=== PATIENT | male | born 1970 | race Caucasian/White ===

== ENCOUNTER 2018-04-12 22:45 | Inpatient (IN) ==
[2018-04-12] MEDS ORDERED: ASPIRIN CHEW 324 MG PO STA (22:55)
[2018-04-12] MEDS ORDERED: HEPARIN SOD (PORCINE) 1000 UNIT/ML 10 ML VIAL IV ONE (22:57)
[2018-04-12] MEDS ORDERED: TICAGRELOR 90 MG TAB PO ONE (22:57)
[2018-04-12] MEDS ORDERED: ASPIRIN CHEW 324 MG ONE (22:57)
[2018-04-12] MEDS ORDERED: SODIUM CHLORIDE 0.9% 1000ML 1,000 ML IV SCH (23:00)
[2018-04-12] MEDS: NITROGLYCERIN SL 0.4 MG/TAB TAB SL PRN ×2 (23:01→23:12)
[2018-04-12 23:08] LABS: Basophils # (auto) 0.02 K/uL (0-0.2); Basophils % (auto) 0.1 %; Eosinophils # (auto) 0.03 K/uL (0-0.5); Eosinophils % (auto) 0.2 %; Hematocrit (blood only) 42.2 % (42-52); Hemoglobin 15.4 g/dL (14.0-18.0); Immature Granulocytes # (auto) 0.08 K/uL (0.00-0.02); Immature Granulocytes % (auto) 0.4 %; Lymphocytes # (auto) 1.58 K/uL (1.2-3.4); Lymphocytes % (auto) 8.3 %; Mean Corpuscular Hgb Conc 36.5 g/dL (32-36); Mean Corpuscular Volume 89.8 fL (80-100); Mean Platelet Volume 8.4 fL (7.4-10.4); Monocytes # (auto) 1.07 K/uL (0.11-0.59); Monocytes % (auto) 5.6 %; Neutrophils # (auto) 16.29 K/uL (1.4-6.5); Neutrophils % (auto) 85.4 %; Platelet Count 374 K/uL (130-400); RDW Coefficient of Variation 12.6 % (11.5-14.5); RDW Standard Deviation 41.4 fL (36.4-46.3); White Blood Count 19.07 K/uL (4.8-10.8)
[2018-04-12] MEDS ORDERED: MoRPHine SULFATE 4 MG/ML 1 ML CARP\\VIAL ONE (23:12)
--- NOTE | 2018-04-12 23:18 | Pre Anesthesia Assessment ---
Date of Service April 12, 2018 Pre Sedation Assessment Vital Signs Temp Pulse Resp BP Pulse Ox 04/12/18 22:48 36.4 C L 66 24 136/88 99 Cardiovascular RRR, no murmur, no edema Respiratory normal respiratory effort, lungs clear to auscultation Pre-Sedation Airway Assessment Smoking Status: Never smoker Hx Sleep Apnea: No Hx Difficult Intubation: No Short, Thick Neck: No Thyromental Distance: > or= 3.5 Finger Breadths Mallampati Class: III Procedure Planning Contraindications for Sedation: none Current Medications Reviewed: Yes Notes The planned sedation has been discussed with the patient. Informed Consent was obtained. I have identified the patient, determined the appropriateness of sedation and have assessed the patient immediately prior to the procedure. All medicine(s) and interventions are by my order.
[2018-04-12 23:21] LABS: iSTAT Creatinine 1.1 mg/dl (0.6-1.3); iSTAT Hemoglobin 14.6 g/dl (14.0-18.0); iSTAT Ionized Calcium 1.07 mmol/l (1.12-1.32); iSTAT Potassium 3.5 mEq/L (3.3-5.0)
[2018-04-12] MEDS ORDERED: MIDAZOLAM HCL 1 MG/ML 2ML VIAL ONE (23:24)
[2018-04-12] MEDS ORDERED: fentaNYL citrate 100 MCG/2 ML VIAL ONE (23:24)
[2018-04-12] MEDS ORDERED: HEPARIN (PORCINE) 1000 UNIT/ML 10 ML (CATH LAB USE ONLY) ONE (23:25)
[2018-04-12] MEDS ORDERED: NiCARDipine HCL INJ 2.5 MG/ML 10 ML AMP ONE (23:25)
[2018-04-12] MEDS ORDERED: NITROGLYCERIN/D5W 100MCG/ML 20ML SYR ONE (23:25)
--- NOTE | 2018-04-12 23:26 | Cardiac Catheterization ---
Cardiac Cath Procedure Full Procedure Date April 12, 2018 Pre-Procedure Diagnosis Pre-Procedure Diagnosis: STEMI AUC Score AUC Score: 9 Post-Procedure Diagnosis Post-Procedure Diagnosis: Severe CAD, Successful PCI and Elevated Intracardiac Pressures Procedure(s) Performed Procedure(s) Performed: Coronary Angiography, Left Heart Cath, PTCA, Drug Eluting Stent and IVUS Furnace Charger Pineda Kaur MD Supervisor Grounds(s) Mookie Estimated Blood Loss Estimated Blood Loss: 20 Medication(s) Medication(s): Adenosine, Fentanyl, Heparin, Lidocaine 1%, Nicardipine, Nitroglycerin and Versed Medication(s): Ticagrelor Summary of Findings Indication: STEMI/Heart Alert Access: 6Fr right radial artery Catheters: EBU 3.5 guide Findings: LM - Luminal irregularities LAD - 100% acute proximal occlusion Circumflex - Moderate caliber vessel with 40-50% mid segment into proximal OM2 disease Ramus - Moderate caliber vessel without significant disease RCA - Large caliber, dominant vessel. Mid segment luminal irregularities. R- PDA large caliber without significant disease. LVEDP - 25 -- PCI -- Antithrombotic therapy: Heparin, Ticagrelor Procedure: LM cannulated with EBU 3.5 guide Shot Fireman 50 wire passed across lesion into distal vessel Proximal LAD lesion predilated with 2.0 compliant balloon Dilated lesion stented with 3.0 x 26 Lino GUILLAUME Due to heavy thrombus burden and slow distal flow started on integrilin IVUS used to asses extent of disease, calcification and for vessel sizing. Shot Fireman 50 wire placed into moderate caliber 2nd diagonal Stent post-dilated with 4.0 noncompliant balloon to high atmospheres. Noted to have some haziness at distal end of stent. IVUS showed moderate to severe plaque distal to stent. 2nd GUILLAUME placed to mid LAD (2.75 x 12 Norton) and overlapped distal end of initial stent Ostium of 2nd diagonal/stent struts dilated with 1.5 and 2.0 balloons. IC vasodilators administered for spasm Post procedure FLOR 3 flow, stent well expanded with minimal residual stenosis and no apparent cardiac complications. Arterial Closure: TR Band Summary: 1. Anterior STEMI/Occluded LAD 2. Moderate single vessel non-culprit coronary artery disease - 40-50% mid circumflex 3. Elevated intracardiac filling pressure 4. Successful PCI of proximal to mid LAD with 2 overlapping drug-eluting stents (3.0 x 26, 2.75 x 12; post-dilated with 4.0 NC). - POBA of ostium of 2nd diagonal with 2.0 balloon. Recommendations: Admit to ICU for continued monitoring Continue integrilin for 8 hours. 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 Continue dual-antiplatelet therapy for at least 1 year. 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 Cardiac Status Clinical evaluation leading to the procedure CAD Presenation: STEMI Anginal Classification: CCS IV Heart Failure: No Cardiogenic Shock within 24 Hours: No Cardiac Arrest within 24 Hours: No Imaging Studies Past 6 Months: No Stress Studies Past 6 Months: No Diagnostic Physicians Name: Pineda Kaur MD Status: Emergency Closure Device Percutaneous Entry Location: Radial Closure Device: Radial Band Recommendations: PCI without planned CABG PCI Indication: Immediate PCI for STEMI First Noted: First EKG Lesion Segment Name: proximal LAD Culprit Artery: Yes Stenosis Prior to Rx (%): 100 Chronic Total Occlusion: No IVUS: Yes FFR: No Pre-Procedure FLOR Flow: 0 Previously Treated Lesion: No Lesion Complexity: High/C Lesion Length (mm): 25 Thrombus Present: Yes Bifurcation Lesion: Yes Guidewire Across Lesion: Stenosis Post-Procedure (%): 0 Post-Procedure FLOR Flow : 3 Devices(s) Deployed: Yes Yes Intraprocedure Events Significant Disection: No Perforation: No
--- NOTE | 2018-04-12 23:39 | Emergency Department Note ---
Entered by Michael Casas acting as a scribe for Hunter Wolf MD History of Present Illness General Chief complaint: Chest Pain Stated complaint: CHEST PAIN Time Seen by Provider: 04/12/18 22:55 Source: patient and family () History of Present Illness Provider complaint: Chest Pain Onset (ago): hour(s) 3 Location: chest Pain Consistency: + constant Maximum Pain Intensity: 7 Current Pain Intensity: 10 Quality: + other (pressure) Associated symptoms: + diaphoresis and + other (tiredness); no nausea/vomiting The patient is a 47 year old male who presents to the Emergency Room with complaints of chest pain beginning approximately 3 hours ago. The patient, who was brought in via car by his , states he was working out when the pain began and rates it as a 10/10. The patient localizes the pain to the center left of his chest and describes his pain as a pressure. The pain is associated with diaphoresis. The patient also states that he feels tired. The patient denies nausea/vomiting. The patient denies a history of cardiac issues and adds he has no medical problems. The patient also denies taking any daily medications. The patient notes he has no family history of heart problems and adds he is a nonsmoker. Home Medications Home Medications Medication Instructions Recorded Confirmed Type No Known Home Medications 04/12/18 04/12/18 History Allergies Allergy/AdvReac Type Severity Reaction Status Date / Time No Known Allergies Allergy Verified 04/12/18 23:37 Past Med/Surg History Medical History No known health problems No pertinent past medical history Surgical History No history of previous surgery Social History Current Living Situation: Family Feels Safe at Home: Yes Safety Concerns: Feels Safe At This Time Smoking Status: Never smoker Do You Dip or Chew Tobacco: No Second Hand Exposure: No Tobacco Cessation Education Requested by Patient: No Hx Alcohol Use: No Hx Substance Use: No Beliefs That Will Affect Care: None Preferred Language: Mongolian Communication Ability: Effective Lead Electrical Controls Engineer Required: No Review of Systems See HPI for pertinent positives & negatives. and A total of 10 systems reviewed and were otherwise negative Physical Exam Vital Signs Vital Signs - 24 hr 04/12/18 22:48 04/12/18 23:18 04/13/18 01:23 Temperature 36.4 C L 36.6 C Temperature Source Oral Oral Sepsis Recent Fever Within 48 Hours No Sepsis Action Taken by Nursing No Action Required Pulse Rate 66 61 Pulse Rate [Bilateral Apical] 60 67 Pulse Rhythm Regular Pulse Rhythm [Bilateral Apical] Regular Regular Pulse Strength [Bilateral Apical] Normal Normal Respiratory Rate 24 16 18 Respiratory Effort / Characteristics Non-Labored Spontaneous Non-Labored Spontaneous Respiratory Depth Normal Normal Respiratory Pattern Regular Regular Blood Pressure 136/88 Blood Pressure [Right Arm] 113/64 117/55 L Blood Pressure Mean 104 Blood Pressure Mean [Right Arm] 80 75 Blood Pressure Position [Right Arm] Lying Pulse Oximetry 99 94 93 Oxygen Delivery Method Room Air Nasal Cannula Nasal Cannula Oxygen Flow Rate 4 2 04/13/18 01:36 04/13/18 02:23 04/13/18 02:53 Temperature 36.6 C Temperature Source Oral Sepsis Recent Fever Within 48 Hours Sepsis Action Taken by Nursing Pulse Rate Pulse Rate [Bilateral Apical] 81 75 66 Pulse Rhythm Pulse Rhythm [Bilateral Apical] Regular Regular Pulse Strength [Bilateral Apical] Normal Normal Normal Respiratory Rate 18 18 20 Respiratory Effort / Characteristics Non-Labored Non-Labored Spontaneous Non-Labored Spontaneous Respiratory Depth Normal Normal Normal Respiratory Pattern Regular Regular Blood Pressure Blood Pressure [Right Arm] 117/55 L 103/68 97/65 L Blood Pressure Mean Blood Pressure Mean [Right Arm] 75 79 75 Blood Pressure Position [Right Arm] Sitting Pulse Oximetry 93 95 Oxygen Delivery Method Room Air Nasal Cannula Nasal Cannula Oxygen Flow Rate 4 4 04/13/18 03:00 04/13/18 03:53 Temperature 36.9 C Temperature Source Oral Sepsis Recent Fever Within 48 Hours Sepsis Action Taken by Nursing Pulse Rate Pulse Rate [Bilateral Apical] 85 66 Pulse Rhythm Pulse Rhythm [Bilateral Apical] Regular Regular Pulse Strength [Bilateral Apical] Normal Normal Respiratory Rate 18 18 Respiratory Effort / Characteristics Non-Labored Spontaneous Non-Labored Spontaneous Respiratory Depth Normal Normal Respiratory Pattern Regular Regular Blood Pressure Blood Pressure [Right Arm] 107/72 95/67 L Blood Pressure Mean Blood Pressure Mean [Right Arm] 83 76 Blood Pressure Position [Right Arm] Lying Pulse Oximetry 95 95 Oxygen Delivery Method Nasal Cannula Nasal Cannula Oxygen Flow Rate 4 4 GENERAL: Awake, alert, ill-appearing HENT: Normocephalic, atraumatic. Oropharynx with dry mucous membranes and otherwise unremarkable. EYES: Normal conjunctiva. Sclera non-icteric. NECK: Supple. No nuchal rigidity. FROM. No JVD. RESPIRATORY: Clear to auscultation. CARDIAC: Regular rate, normal rhythm. Extremities warm and well perfused. Pulses equal. ABDOMEN: Soft, non-distended. No tenderness to palpation. No rebound or guarding. No masses. RECTAL: Deferred. MUSCULOSKELETAL: Chest examination reveals no tenderness. There is no CVA tenderness to palpation. No joint edema. LOWER EXTREMITIES: Calves are equal size bilaterally and non-tender. No edema. No discoloration. NEURO: Normal sensorium. No sensory or motor deficits noted. SKIN: No rash or jaundice noted. Pale and diaphoretic Course 2250: Past medical records reviewed. The patient was evaluated in room B01, and a complete history and physical examination were performed. 2344: I reviewed the patient's case with Dr. De Leon. He will evaluate the patient for further management. Consultations Consultation #1: [id number]: I reviewed the patient's case with Dr. Gurvinder Velazco. He will evaluate the patient for further management. Time: 23:44 Administered Medications Eptifibatide (Integrilin) 75 mg in 100 mls @ 12.64 mls/hr IV .Q7H55M [facility]; Protocol Stop: 04/13/18 09:45 Last Admin: 04/13/18 02:45 Dose: 2 mcg/kg/min, 12.6 mls/hr Morphine Sulfate (Morphine Sulfate) 2 mg IV Q2H PRN PRN Reason: moderate to severe pain Stop: 04/27/18 01:09 Last Admin: 04/13/18 02:02 Dose: 4 mg Ondansetron HCl (Zofran) 4 mg IV Q6H PRN PRN Reason: Nausea And Vomiting Stop: 05/13/18 01:07 Last Admin: 04/13/18 01:43 Dose: 4 mg Discontinued Medications Adenosine (Adenosine) Confirm Administered Dose 6 mg IV .STK-MED ONE Stop: 04/13/18 00:24 Last Admin: 04/13/18 00:54 Dose: 6 mg Aspirin (Aspirin) 324 mg PO NOW STA Stop: 04/12/18 22:56 Last Admin: 04/12/18 23:01 Dose: 324 mg Aspirin (Aspirin) Confirm Administered Dose 324 mg .ROUTE .STK-MED ONE Stop: 04/12/18 22:58 Last Admin: 04/12/18 23:02 Dose: Not Given Eptifibatide (Integrilin (Automatic Spinning Lathe Operator Use Only)) Confirm Administered Dose 40 mg .ROUTE .STK-MED ONE Stop: 04/12/18 23:54 Last Admin: 04/13/18 00:53 Dose: 29.2 ml Eptifibatide (Integrilin (Automatic Spinning Lathe Operator Use Only)) Confirm Administered Dose 75 mg .ROUTE .STK-MED ONE Stop: 04/12/18 23:56 Last Admin: 04/13/18 00:54 Dose: Not Given Fentanyl Citrate (Fentanyl Citrate) Confirm Administered Dose 100 mcg .ROUTE .STK-MED ONE Stop: 04/12/18 23:25 Last Admin: 04/13/18 00:48 Dose: 25 mcg Fentanyl Citrate (Fentanyl Citrate) Confirm Administered Dose 100 mcg .ROUTE .STK-MED ONE Stop: 04/13/18 00:23 Last Admin: 04/13/18 00:49 Dose: 100 mcg Heparin Sodium (Porcine) (Heparin Iv Bolus) 5,000 units IV ONE ONE Stop: 04/12/18 22:58 Last Admin: 04/12/18 23:11 Dose: 5,000 units Heparin Sodium (Porcine) (Heparin Iv Bolus (Automatic Spinning Lathe Operator Use Only)) Confirm Administered Dose 10,000 units .ROUTE .STK-MED ONE Stop: 04/12/18 23:26 Last Admin: 04/13/18 00:52 Dose: 9,000 units Heparin Sodium/Sodium Chloride (Heparin Sod/Nss 2 Units/Ml) Confirm Administered Dose 1,000 units IV .STK-MED ONE Stop: 04/12/18 23:26 Last Admin: 04/13/18 00:52 Dose: 1,000 units Sodium Chloride (Nss 1000ml) 1,000 mls @ 125 mls/hr IV .Q8H ROSELINE Stop: 05/12/18 22:59 Last Infusion: 04/13/18 02:15 Dose: Admin: 04/12/18 23:01 Dose: 125 mls/hr Furosemide 10 mg/ Syringe 1 mls @ 4 mls/min IV TODAY@0245 ONE Stop: 04/13/18 02:46 Last Admin: 04/13/18 02:45 Dose: 4 mls/min Midazolam HCl (Versed) Confirm Administered Dose 2 mg .ROUTE .STK-MED ONE Stop: 04/12/18 23:25 Last Admin: 02/08/19 00:51 Dose: 2 mg Morphine Sulfate (Morphine Sulfate) Confirm Administered Dose 4 mg .ROUTE .STK- MED ONE Stop: 04/12/18 23:13 Last Admin: 04/12/18 23:13 Dose: 4 mg Nicardipine HCl (Cardene) Confirm Administered Dose 25 mg .ROUTE .STK-MED ONE Stop: 04/12/18 23:26 Last Admin: 04/13/18 00:52 Dose: 25 mg Nitroglycerin (Nitrostat) 0.4 mg SL Q5M PRN PRN Reason: Chest Pain Last Admin: 04/12/18 23:12 Dose: 0.4 mg Admin: 04/12/18 23:01 Dose: 0.4 mg Nitroglycerin/Dextrose (Nitroglycerin/D5w 100 Mcg/Ml 20ml Syringe) Confirm Administered Dose 2,000 mcg .ROUTE .STK-MED ONE Stop: 04/12/18 23:26 Last Admin: 04/13/18 00:53 Dose: 2,000 mcg Norepinephrine Bitartrate (Levophed (Automatic Spinning Lathe Operator Use Only)) Confirm Administered Dose 4 mg .ROUTE .STK-MED ONE Stop: 04/12/18 23:50 Last Admin: 04/13/18 00:51 Dose: Not Given Ticagrelor (Brilinta) 180 mg PO ONE ONE Stop: 04/12/18 22:58 Last Admin: 04/12/18 23:10 Dose: 180 mg Medical Decision Making Differential Diagnosis Differential diagnosis: Etiologies such as shingles, musculoskeletal pain, pericarditis, myocarditis, cardiac ischemia, pericardial tamponade, pneumonia, pneumothorax, pleural effusion, hemothorax, pleurisy, aortic pathology, pulmonary embolism, intra- abdominal process, as well as others were considered. Medical Records Attestation: I reviewed the patient's medical records. Home Medications Current Medication List: was personally reviewed by me Laboratory Data Attestation: I reviewed the patient's lab results. Result diagrams: 04/13/18 04:05 04/13/18 04:05 Lab Results 04/12/18 04/12/18 04/12/18 Range/Units 22:59 22:59 22:59 WBC 19.07 H (4.8-10.8) K/uL RBC 4.70 (4.7-6.1) M/uL Hgb 15.4 (14.0-18.0) g/dL POC Hgb (14.0-18.0) g/dl Hct 42.2 (42-52) % POC Hct (42-52) % MCV 89.8 (80-100) fL MCH 32.8 (25-34) pg MCHC 36.5 H (32-36) g/dL RDW Std Deviation 41.4 (36.4-46.3) fL RDW Coeff of Val 12.6 (11.5-14.5) % Plt Count 374 (130-400) K/uL MPV 8.4 (7.4-10.4) fL Immature Gran % (Auto) 0.4 % Neut % (Auto) 85.4 % Lymph % (Auto) 8.3 % Gulf % (Auto) 5.6 % Eos % (Auto) 0.2 % Baso % (Auto) 0.1 % Immature Gran # (Auto) 0.08 H (0.00-0.02) K/uL Neut # (Auto) 16.29 H (1.4-6.5) K/uL Lymph # (Auto) 1.58 (1.2-3.4) K/uL Gulf # (Auto) 1.07 H (0.11-0.59) K/uL Eos # (Auto) 0.03 (0-0.5) K/uL Baso # (Auto) 0.02 (0-0.2) K/uL RBC Morphology PT Cancelled INR Cancelled APTT Cancelled PTT Ratio Cancelled POC Sodium (135-144) mEq/L Sodium 138 (136-145) mmol/L POC Potassium (3.3-5.0) mEq/L Potassium 3.7 (3.5-5.1) mmol/L POC Chloride (101-112) mEq/L Chloride 104 (98-107) mmol/L Carbon Dioxide 24 (21-32) mmol/L POC Total CO2 (24-31) mEq/l Anion Gap 10.0 (3-11) POC Anion Gap (16-25) mmol/L POC BUN (7-18) mg/dl BUN 16 (7-18) mg/dl Creatinine 1.34 (0.6-1.4) mg/dl POC Creatinine (0.6-1.3) mg/dl Est Cr Clr Drug Dosing 66.7 ml/min Est GFR ( Amer) 71.6 Est GFR (Non-Af Amer) 61.8 BUN/Creatinine Ratio 11.6 (10-20) Glucose 124 H (70-99) mg/dl POC Glucose (other) (70-99) mg/dl Calcium 8.7 (8.5-10.1) mg/dl POC Ioniz Calcium Thu (1.12-1.32) mmol/l Magnesium 2.1 (1.8-2.4) mg/dl Total Bilirubin 0.5 (0.2-1) mg/dl AST 33 (15-37) U/L ALT 31 (12-78) U/L Alkaline Phosphatase 112 (45-117) U/L Total Creatine Kinase 320 H (39-308) U/L CK-MB (CK-2) 10.0 H (0.5-3.6) ng/ml CK/CKMB % Calc 3.1 H (0-3.0) POC Troponin I (0-0.045) ng/ml Troponin I 1.310 H* (0-0.045) ng/ml Total Protein 7.7 (6.4-8.2) gm/dl Albumin 4.2 (3.4-5.0) gm/dl Globulin 3.5 (2.5-4.0) gm/dl Albumin/Globulin Ratio 1.2 (0.9-2) Triglycerides (0-150) mg/dl Cholesterol (0-200) mg/dl LDL Cholesterol, Calc mg/dl VLDL Cholesterol, Calc mg/dl HDL Cholesterol mg/dl Cholesterol/HDL Ratio Lipase 101 (73-393) U/L TSH 1.170 (0.300-4.500) uIu/ml Specimen Hemolysis Nasal Screen MRSA (PCR) (Negative) Blood Type Antibody Screen 04/12/18 04/12/18 04/12/18 Range/Units 22:59 23:04 23:07 WBC (4.8-10.8) K/uL RBC (4.7-6.1) M/uL Hgb (14.0-18.0) g/dL POC Hgb 14.6 (14.0-18.0) g/dl Hct (42-52) % POC Hct 43 (42-52) % MCV (80-100) fL MCH (25-34) pg MCHC (32-36) g/dL RDW Std Deviation (36.4-46.3) fL RDW Coeff of Val (11.5-14.5) % Plt Count (130-400) K/uL MPV (7.4-10.4) fL Immature Gran % (Auto) % Neut % (Auto) % Lymph % (Auto) % Gulf % (Auto) % Eos % (Auto) % Baso % (Auto) % Immature Gran # (Auto) (0.00-0.02) K/uL Neut # (Auto) (1.4-6.5) K/uL Lymph # (Auto) (1.2-3.4) K/uL Gulf # (Auto) (0.11-0.59) K/uL Eos # (Auto) (0-0.5) K/uL Baso # (Auto) (0-0.2) K/uL RBC Morphology PT INR APTT PTT Ratio POC Sodium 140 (135-144) mEq/L Sodium (136-145) mmol/L POC Potassium 3.5 (3.3-5.0) mEq/L Potassium (3.5-5.1) mmol/L POC Chloride 101 (101-112) mEq/L Chloride (98-107) mmol/L Carbon Dioxide (21-32) mmol/L POC Total CO2 26 (24-31) mEq/l Anion Gap (3-11) POC Anion Gap 17.0 (16-25) mmol/L POC BUN 15 (7-18) mg/dl BUN (7-18) mg/dl Creatinine (0.6-1.4) mg/dl POC Creatinine 1.1 (0.6-1.3) mg/dl Est Cr Clr Drug Dosing ml/min Est GFR ( Amer) Est GFR (Non-Af Amer) BUN/Creatinine Ratio (10-20) Glucose (70-99) mg/dl POC Glucose (other) 129 H (70-99) mg/dl Calcium (8.5-10.1) mg/dl POC Ioniz Calcium Thu 1.07 L (1.12-1.32) mmol/l Magnesium (1.8-2.4) mg/dl Total Bilirubin (0.2-1) mg/dl AST (15-37) U/L ALT (12-78) U/L Alkaline Phosphatase (45-117) U/L Total Creatine Kinase (39-308) U/L CK-MB (CK-2) (0.5-3.6) ng/ml CK/CKMB % Calc (0-3.0) POC Troponin I 0.99 H (0-0.045) ng/ml Troponin I (0-0.045) ng/ml Total Protein (6.4-8.2) gm/dl Albumin (3.4-5.0) gm/dl Globulin (2.5-4.0) gm/dl Albumin/Globulin Ratio (0.9-2) Triglycerides (0-150) mg/dl Cholesterol (0-200) mg/dl LDL Cholesterol, Calc mg/dl VLDL Cholesterol, Calc mg/dl HDL Cholesterol mg/dl Cholesterol/HDL Ratio Lipase (73-393) U/L TSH (0.300-4.500) uIu/ml Specimen Hemolysis Nasal Screen MRSA (PCR) (Negative) Blood Type O Positive Antibody Screen NEGATIVE 04/13/18 04/13/18 04/13/18 Range/Units 04:05 04:05 Unknown WBC 16.27 H (4.8-10.8) K/uL RBC 4.52 L (4.7-6.1) M/uL Hgb 14.2 (14.0-18.0) g/dL POC Hgb (14.0-18.0) g/dl Hct 40.5 L (42-52) % POC Hct (42-52) % MCV 89.6 (80-100) fL MCH 31.4 (25-34) pg MCHC 35.1 (32-36) g/dL RDW Std Deviation 41.7 (36.4-46.3) fL RDW Coeff of Val 12.9 (11.5-14.5) % Plt Count 356 (130-400) K/uL MPV 8.7 (7.4-10.4) fL Immature Gran % (Auto) 0.4 % Neut % (Auto) 88.7 % Lymph % (Auto) 8.2 % Gulf % (Auto) 2.6 % Eos % (Auto) 0.1 % Baso % (Auto) 0.0 % Immature Gran # (Auto) 0.07 H (0.00-0.02) K/uL Neut # (Auto) 14.42 H (1.4-6.5) K/uL Lymph # (Auto) 1.34 (1.2-3.4) K/uL Gulf # (Auto) 0.43 (0.11-0.59) K/uL Eos # (Auto) 0.01 (0-0.5) K/uL Baso # (Auto) 0.00 (0-0.2) K/uL RBC Morphology Unremarkable PT INR APTT PTT Ratio POC Sodium (135-144) mEq/L Sodium 137 (136-145) mmol/L POC Potassium (3.3-5.0) mEq/L Potassium 4.1 (3.5-5.1) mmol/L POC Chloride (101-112) mEq/L Chloride 107 (98-107) mmol/L Carbon Dioxide 27 (21-32) mmol/L POC Total CO2 (24-31) mEq/l Anion Gap 3.0 (3-11) POC Anion Gap (16-25) mmol/L POC BUN (7-18) mg/dl BUN 15 (7-18) mg/dl Creatinine 1.07 (0.6-1.4) mg/dl POC Creatinine (0.6-1.3) mg/dl Est Cr Clr Drug Dosing 78.1 ml/min Est GFR ( Amer) 94.0 Est GFR (Non-Af Amer) 81.1 BUN/Creatinine Ratio 14.2 (10-20) Glucose 128 H (70-99) mg/dl POC Glucose (other) (70-99) mg/dl Calcium 7.9 L (8.5-10.1) mg/dl POC Ioniz Calcium Thu (1.12-1.32) mmol/l Magnesium (1.8-2.4) mg/dl Total Bilirubin (0.2-1) mg/dl AST (15-37) U/L ALT (12-78) U/L Alkaline Phosphatase (45-117) U/L Total Creatine Kinase (39-308) U/L CK-MB (CK-2) (0.5-3.6) ng/ml CK/CKMB % Calc (0-3.0) POC Troponin I (0-0.045) ng/ml Troponin I (0-0.045) ng/ml Total Protein (6.4-8.2) gm/dl Albumin (3.4-5.0) gm/dl Globulin (2.5-4.0) gm/dl Albumin/Globulin Ratio (0.9-2) Triglycerides 80 (0-150) mg/dl Cholesterol 198 (0-200) mg/dl LDL Cholesterol, Calc 143 mg/dl VLDL Cholesterol, Calc 16 mg/dl HDL Cholesterol 39 mg/dl Cholesterol/HDL Ratio 5 Lipase (73-393) U/L TSH (0.300-4.500) uIu/ml Specimen Hemolysis Nasal Screen MRSA (PCR) Negative (Negative) Blood Type Antibody Screen Imaging Data Attestation: I personally reviewed and interpreted this imaging study as follows : My Impression: CXR: Normal mediastinum. Possible mild vascular prominence. No overt pulmonary edema or focal infiltrates. ECG Data Attestation: I personally reviewed and interpreted this ECG as follows: Indication: chest pain Rate (beats per minute): 67 Rhythm: normal sinus Findings: + ST depression (reciprocal inferior) and + ST elevation (anterior lateral) Blood Pressure Blood Pressure Findings: Normal blood pressure MDM Narrative The patient is a 47-year-old gentleman who denies prior medical history who presents emergency department with sudden onset substernal chest pressure at 7 PM today when he was exercising per hpi. On arrival the patient is ill- appearing, pale and diaphoretic with vital signs otherwise stable. EKG demonstrates anterior lateral ST elevation [place], reciprocal inferior ST depressions. Heart alert activated upon arrival. Patient was given aspirin and nitroglycerin with improvement in pain. Chest x-ray without mediastinal enlargement. Dr. Kaur, interventional cardiology, at the bedside and discussed plan for catheterization with the patient and his . Patient was given ticagrelor and heparin bolus per Dr. Kaur. Case additionally d/w Dr. Carnes, [facility] hospitalist, who will admit the patient following pharmacy laboratory technician. WBC 19. H/H and platelets wnl. Chemistry without acidosis. Cr 1.3. Troponin 1.3. Impression & Plan ST elevation [place] (STEMI) Critical Care Time I have personally spent greater than 35 minutes of critical care time in the direct management of this patient. This includes bedside care, interpretation of diagnostic studies, and testing, discussion with consultants, patient, and family members, and other required patient management activities. This 35 minutes is in excess of all separately billable procedures. Critical Care Time: Yes Total Critical Care Time: 35 Discharge Plan Visit Data *Final* Discharge Date/Time: 04/12/18 23:33 Chief Complaint: Chest Pain Stated Complaint: CHEST PAIN ED Provider: Hunter Wolf Discharge Problem: ST elevation [place] (STEMI) Patient Disposition: Admitted As Inpatient Discharge Instructions Interventions: ED Discharge Assessment Last Done: 04/12/18 23:33 The scribe's documentation has been prepared under my direction and personally reviewed by me in its entirety. I confirm that the note above accurately reflects all work, treatment, procedures, and medical decision making performed by me.
[2018-04-12 23:43] LABS: Albumin Globulin Ratio 1.2 (0.9-2); Albumin Level 4.2 gm/dl (3.4-5.0); BUN Creatinine Ratio 11.6 (10-20); Bilirubin,Total 0.5 mg/dl (0.2-1); Calcium 8.7 mg/dl (8.5-10.1); Creatinine Clr Calc Pharmacy 66.7 ml/min; Est GFR (African American) 71.6; Est GFR (Non-African American) 61.8; Globulin 3.5 gm/dl (2.5-4.0); Magnesium 2.1 mg/dl (1.8-2.4); Potassium 3.7 mmol/L (3.5-5.1); Total Protein 7.7 gm/dl (6.4-8.2); Troponin I 1.31 ng/ml (0-0.045)
[2018-04-12] MEDS ORDERED: NOREPINEPHRINE BITARTRATE 1 MG/ML 4 ML VIAL (CATH LAB USE ONLY) ONE (23:49)
[2018-04-12] MEDS ORDERED: EPTIFIBATIDE 2 MG/ML 10 ML VIAL (CATH LAB USE ONLY) ONE (23:53)
[2018-04-12] MEDS ORDERED: EPTIFIBATIDE 0.75 MG/ML 75MG VIAL (CATH LAB USE ONLY) ONE (23:55)
[2018-04-13] MEDS ORDERED: fentaNYL citrate 100 MCG/2 ML VIAL ONE (00:22)
[2018-04-13] MEDS ORDERED: ADENOSINE IV SOLN 3 MG/ML 2 ML VIAL IV ONE (00:23)
[2018-04-13] MEDS ORDERED: EPTIFIBATIDE BOLUS/DRIP IV STA (01:08)
[2018-04-13] MEDS ORDERED: MoRPHine SULFATE 4 MG/ML 1 ML CARP\\VIAL IV PRN (01:10)
[2018-04-13] MEDS ORDERED: ICU PROTOCOL FOR HYPERGLYCEMIA PRN (01:10)
[2018-04-13] MEDS ORDERED: ACETAMINOPHEN 325 MG TAB PO PRN (01:10)
[2018-04-13] MEDS: ONDANSETRON INJ 2 MG/ML 2 ML VIAL IV PRN ×2 (01:43→10:01)
--- NOTE | 2018-04-13 02:14 | Critical Care Consultation ---
Date of Consultation April 13, 2018 Assessment & Plan (1) Admitted to intensive care unit: Reason Critically Ill: 47-year-old male with acute anterior STEMI status post PTCA with GUILLAUME x2 to the LAD. NEURO - * CAM ICU: NEGATIVE * Pain: Attempt to delineate cardiac versus other sources of pain. * Morphine PRN * Nitro if BP allows. CARDIAC/VASCULAR - * Actue Anterior STEMI s/p PTCA w/ GUILLAUME x2 to the LAD: * Initially w/ moderate ectopy noted on monitor --> Attempt to provide BB as BP /HR tolerates. * Hypoxia w/ reported increased LV filling pressures --> gentle diuresis. Initially started w/ 10mg IV Lasix given soft BPs. Will add additional doses as BP allows. * Continue Ingetrilin gtt per interventionalist. * Trend Trops. * ASCVD - BB, TIMMY, DAPT, Statin. * AM Echo * EKG: Improvement in ST segment elevation noted on initial EKG. * Monitor on telemetry. RESPIRATORY - * Hypoxia s/p STEMI w/ increased LV filling pressures. * Will add supplemental O2 PRN. * Gentle diuresis. * Consider CPAP. * Repeat CXR w/o new significant pulmonary edema. GI/NUTRITION - * Progress diet as tolerated. * Diet: AHA RENAL/LYTES - * No significant electrolyte derangements. * Will monitor closely s/p Lasix administration. * IVF: Hold IVF 2/2 hypoxia and c/o pulmonary edema. - * No concerns at this time. ENDO - * No h/o DM or Thyroid Dz. HEME - * Stable H&H * Monitor for s/s bleeding s/p Integrilin gtt. ID - * No c/o infectious contributions at this time. LINES/IV ACCESS - * PIVs x2 * RIGHT Radial TR Band in place. DVT PROPHYLAXIS - * Will hold on chemoprophylaxis 2/2 current Integrilin gtt w/ intent for transition to PO DAPT. * SCDs I have personally spent 45 minutes of critical care time in the direct management of this patient. This is a life/limb threatening event. This includes time spent evaluating patient, direct bedside care, chart review, placing orders, interpretation of diagnostic studies, discussion with consultants, patient, and family members, as well as other required patient management activities. This time is exclusive of all separately billable procedures, and teaching time and separate from and in addition to any other critical care service time. Thank you for allowing us to participate in the care of this patient. Please refer to my attending physician's documentation for any further recommendations. (2) ST elevation myocardial infarction (STEMI) of anterior wall, initial episode of care: (3) S/P PTCA (percutaneous transluminal coronary angioplasty): (4) S/P drug eluting coronary stent placement: (5) CAD (coronary artery disease): Supervising Physician Co-Signing Physician Notes I have seen and examined this patient with Galindo Goode PA-C and agree with his assessment and plan of care. We are going to continue with current plan of care as prescribed. Will continue with current management as prescribed. Dr. Tyron Guzmán. History of Present Illness Attending Physician: Jaxson Grullon MD Patient is a 47-year-old male with no significant reported past medical history who presented to the emergency department earlier this evening with acute LEFT- sided chest pain found to be experiencing an acute anterior STEMI. He was taken emergently to the cardiac catheterization lab where he underwent successful PTCA with GUILLAUME x2 to the LAD for a 100% proximal LAD occlusion. Patient did have some persistent chest discomfort intra-procedurally, but reports much improvement from initial presentation. During his presentation he described 10 out of 10 chest pain without radiation. He did associate some lightheadedness as well as nausea. At this point, he describes some dull achiness in the chest rating his pain a 6/10. He does report that morphine did help his pain. Patient reports that he recently traveled from [place]. He was working out at a friend's house, particularly he was lifting weights. He began to develop pain to the LEFT-sided chest. Initially, he felt as though this was related to muscle strain, however the pain did not go away after a few hours. Eventually, they elected to come to the emergency department for continued evaluation. At that point, he was found to have an acute STEMI. Patient reports no significant family history of cardiovascular disease. He reports no personal history of cardiovascular illness himself. He does not smoke. No recreational substance use noted. Allergies Allergy/AdvReac Type Severity Reaction Status Date / Time No Known Allergies Allergy Verified 04/12/18 23:37 Home Medications Home Medications Medication Instructions Recorded Confirmed Type No Known Home Medications 04/12/18 04/12/18 History Patient History Medical History No known health problems No pertinent past medical history Surgical History No history of previous surgery Social History Current Living Situation: Family Feels Safe at Home: Yes Safety Concerns: Feels Safe At This Time Smoking Status: Never smoker Do You Dip or Chew Tobacco: No Second Hand Exposure: No Tobacco Cessation Education Requested by Patient: No Hx Alcohol Use: No Hx Substance Use: No Beliefs That Will Affect Care: None Preferred Language: Citizen Of [place] Communication Ability: Effective 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 All else were negative. Physical Exam 2 Vital Signs (Past 24 Hours): Last Vital Signs Temp 36.6 C 04/13/18 01:36 Pulse 81 04/13/18 01:36 Resp 18 04/13/18 01:36 BP 117/55 L 04/13/18 01:36 Pulse Ox 94 04/12/18 23:18 Physical Exam: VITAL SIGNS - Vital signs and nursing notes were reviewed. GENERAL - 47-year-old male appearing his stated age who is in no acute distress. Communicates well with provider and answers questions appropriately. HEAD - NC/AT. EYES - PERRL with EOMI bilaterally. Sclera anicteric. Palpebral conjunctiva pink and moist with no injection noted. EARS - No deformities of external structures noted on gross examination bilaterally. NOSE - Midline and without cyanosis. No epistaxis or purulent drainage noted. Septum midline without deviation or septal hematoma noted. MOUTH/OROPHARYNX - Without perioral cyanosis. Buccal mucosa pink and moist and without leukoplakia. NECK - Neck with FROM. LUNGS - Chest wall symmetric without accessory muscle use, intercostals retractions, or central cyanosis. Normal vesicular breath sounds CTA B/L. No wheezes, rales, or rhonchi appreciated. CARDIAC - RRR with S1/S2. No murmur, rubs, or gallops appreciated. No reproducible tenderness to palpation appreciated over the anterior chest wall. ABDOMEN - Abdominal contour flat without pulsations or visible masses. BS normoactive all four quadrants. No tenderness, palpable masses, hepatosplenomegaly, or ascites noted. EXTREMITIES - No clubbing or peripheral cyanosis. No pretibial edema present. +3 /5 radial and dorsalis pedis pulses palpated throughout. +5/5 strength noted in UE/LE bilaterally. NEUROLOGIC - Cranial nerves II through XII grossly intact. Sensory intact to light touch throughout. PSYCH - A&Ox3 and cooperates fully with examiner. Pt is very pleasant and interacts well with examiner.
[2018-04-13] MEDS ORDERED: FUROSEMIDE 10 MG in SYRINGE 0 ML IV ONE (02:45)
[2018-04-13] MEDS: EPTIFIBATIDE 75 MG/100 ML VIAL IV SCH ×2 (02:45→07:12)
[2018-04-13 04:25] LABS: Hematocrit (blood only) 40.5 % (42-52); Hemoglobin 14.2 g/dL (14.0-18.0); Mean Corpuscular Hgb Conc 35.1 g/dL (32-36); Mean Corpuscular Volume 89.6 fL (80-100); Mean Platelet Volume 8.7 fL (7.4-10.4); Platelet Count 356 K/uL (130-400); RDW Coefficient of Variation 12.9 % (11.5-14.5); RDW Standard Deviation 41.7 fL (36.4-46.3); Red Blood Count 4.52 M/uL (4.7-6.1); White Blood Count 16.27 K/uL (4.8-10.8)
[2018-04-13 04:44] LABS: BUN Creatinine Ratio 14.2 (10-20); Calcium 7.9 mg/dl (8.5-10.1); Creatinine Clr Calc Pharmacy 78.1 ml/min; Est GFR (Non-African American) 81.1; Potassium 4.1 mmol/L (3.5-5.1)
[2018-04-13 04:45] LABS: Eosinophils # (auto) 0.01 K/uL (0-0.5); Eosinophils % (auto) 0.1 %; Immature Granulocytes # (auto) 0.07 K/uL (0.00-0.02); Immature Granulocytes % (auto) 0.4 %; Lymphocytes # (auto) 1.34 K/uL (1.2-3.4); Lymphocytes % (auto) 8.2 %; Monocytes # (auto) 0.43 K/uL (0.11-0.59); Monocytes % (auto) 2.6 %; Neutrophils # (auto) 14.42 K/uL (1.4-6.5); Neutrophils % (auto) 88.7 %; RBC Morphology Unremarkable
--- NOTE | 2018-04-13 06:50 | XRay Report ---
XR chest 1V portable HISTORY: 47 years-old Male Chest pain acute atypical chest pain COMPARISON: Chest radiograph 04/13/2018 TECHNIQUE: Portable AP view of the chest FINDINGS: Cardiac silhouette is upper limits of normal in size. There is no pneumothorax, pleural effusion, foc al airspace consolidation or overt pulmonary edema. The bones of the chest appear grossly intact. IMPRESSION: No acute process. The above report was generated using voice recognition software. It may contain grammatical, syntax o r spelling errors. Electronically signed by: Jose Alejandro Tierney M.D. 04/13/2018 6:49 AM
--- NOTE | 2018-04-13 06:53 | XRay Report ---
XR chest 1V portable HISTORY: 47 years-old Male hypoxia acute hypoxia COMPARISON: Chest radiograph 04/12/2018 TECHNIQUE: Portable AP view of the chest FINDINGS: Cardiac silhouette is upper limits of normal in size. Suggestion of a coronary arterial stent graft p rojecting over the left heart border. There is no pneumothorax, pleural effusion, focal airspace cons olidation or overt pulmonary edema. The bones of the chest appear grossly intact. IMPRESSION: Status post placement of a coronary arterial stent. No acute intrathoracic abnormality. The above report was generated using voice recognition software. It may contain grammatical, syntax o r spelling errors. Electronically signed by: Jose Alejandro Tierney M.D. 04/13/2018 6:52 AM
[2018-04-13 07:03] LABS: Estimated Average Glucose 97 mg/dl
[2018-04-13] MEDS ORDERED: INFLUENZA ADMINISTRATION CHARGE ONE (07:45)
[2018-04-13] MEDS ORDERED: INFLUENZA VIRUS QUAD VACCINE 0.5 ML SYR IM ONE (07:45)
--- NOTE | 2018-04-13 07:45 | Anesthesiology Progress Note ---
Date of Service April 13, 2018 Anesthesia Post Procedure Vital Signs Vital Signs: Temp Pulse Pulse Resp BP BP Pulse Ox 04/13/18 05:53 87 18 117/70 96 04/13/18 04:53 67 18 105/73 95 04/13/18 03:53 36.9 C 66 18 95/67 L 95 04/13/18 03:00 85 18 107/72 95 04/13/18 02:53 66 20 97/65 L 95 04/13/18 02:23 75 18 103/68 93 04/13/18 01:36 36.6 C 81 18 117/55 L 04/13/18 01:23 36.6 C 67 18 117/55 L 93 04/12/18 23:18 61 60 16 113/64 94 04/12/18 22:48 36.4 C L 66 24 136/88 99 Pain Intensity Left Chest: Pain Intensity: 5 Notes Mental Status: alert / awake / arousable and participated in evaluation Patient Amnestic to Procedure: Yes Nausea / Vomiting: adequately controlled Pain: adequately controlled Airway Patency, RR, SpO2: stable & adequate BP & HR: stable & adequate Hydration State: stable & adequate Anesthetic Complications: no major complications apparent and Pt Satisfied with anesthetic care
[2018-04-13 08:22] LABS: Phosphorus 2.6 mg/dl (2.5-4.9); Troponin I > 200.000 ng/ml (0-0.045)
[2018-04-13] MEDS: ASPIRIN 81 MG ECTAB PO SCH (08:41)
[2018-04-13] MEDS: ATORVASTATIN 40 MG TAB PO SCH (08:41)
[2018-04-13] MEDS: TICAGRELOR 90 MG TAB PO SCH ×2 (08:41→20:30)
[2018-04-13] MEDS: LISINOPRIL 5 MG TAB PO SCH (08:44)
[2018-04-13] MEDS ORDERED: METOPROLOL TARTRATE 25 MG TAB PO SCH (09:00)
--- NOTE | 2018-04-13 10:17 | Consultation Report ---
DATE OF CONSULTATION: 04/13/2018 CONSULTATION REQUESTED BY: Dr. Hunter Wolf. REASON FOR CONSULTATION: Suspected anterior STEMI/heart alert. HISTORY OF PRESENT ILLNESS: Mr. Jones is a 47-year-old man with no significant past medical history who presented to the Emergency Department at approximately 10:30 p.m. in the setting of persistent 10/10 chest pain. The patient states that pain began approximately 3 hours prior and has increased since that time. He denies any prior cardiac history. Denies tobacco use or family history of coronary artery disease. In the ED, the patient was noted to have greater than [address] elevations anteriorly on his presenting EKG. He was hemodynamically stable, still having active chest pain requiring nitrate and opioids. PAST MEDICAL HISTORY: None. 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 Denies tobacco or significant alcohol use. FAMILY HISTORY: Several family members with hypertension, but no premature coronary artery disease or sudden cardiac . REVIEW OF SYSTEMS: Not completed in the emergent situation. HOME MEDICATIONS: None. ALLERGIES: None. PHYSICAL EXAMINATION: VITAL SIGNS: Temperature 36.4, blood pressure 136/88, pulse was 66, respiratory rate was 24, was satting 99% on room air. GENERAL: The patient appeared uncomfortable, but in no acute distress. HEENT: Sclerae anicteric. His oropharynx was clear. LUNGS: Clear to auscultation bilaterally. HEART: He had regular rate and rhythm with no appreciable murmurs. ABDOMEN: Soft, nontender. EXTREMITIES: Warm with no significant lower extremity edema. His vascular exam was notable for 2+ radial pulses bilaterally. NEUROLOGIC: Grossly nonfocal. LABORATORY DATA: EKG as mentioned above. White blood cell count 19.7, hemoglobin 15.4, platelets of 374. BMP, troponin all pending. IMPRESSION AND PLAN: Anterior ST elevation myocardial infarction. Mr. Miner is here with 3 hours of substernal chest pain and presenting EKG showing impressive anterior ST elevations. Plan is to proceed with emergent cardiac catheterization for suspected acute myocardial infarction. Discussed risks, benefits, alternatives of the procedure with the patient and his and they are willing to proceed. The patient to be given aspirin, ticagrelor, heparin in the Emergency Department. Procedure to be completed via right radial artery. Further recommendations pending findings of coronary angiography.
--- NOTE | 2018-04-13 10:38 | History & Physical Report ---
Date of Service April 13, 2018 Assessment & Plan (1) ST elevation [place] (STEMI): Neal is a 47 year old male with no significant past medical history that presented to [facility] with central 10/10 chest pain and was found to have a ST elevated [place]. He was taken to the [facility] and found to have a 100% proximal occlusion of his LAD and had 2 drug eluting stents placed STEMI - currently being monitored in the ICU--->plan to transfer to telemetry this afternoon - dual antiplatelet therapy with brillinta and aspirin - TIMMY inhibitor with lisinopril 5mg - BB with metoprolol 12.5mg bid - High intensity statin with atorvastatin 80mg - Tylenol and morphine ordered prn for pain - Risk factor screening: Lipids (LDL 143, HDL 39), HgbA1c (5.0) - Patient would benefit from cardiac rehab Diet: Heart Healthy Code: Full Dispo: Discharge home tomorrow pending patient recovery and symptoms DVT: Patient encouraged to get out of bed and ambulate History of Present Illness Chief Complaint: Chest pain Primary Care Provider: Carlene Chau MD Neal is a 47 year old male with no significant past medical history that presented to [facility] on 04/12/18 and was found to have an acute anterior STEMI status post PTCA with GUILLAUME x2 to the LAD. The patient was lifting weights at 730pm yesterday evening when he started experiencing 10/10 central chest pressure that he describes as a pressure like pain. The patient had associated diaphoresis and fatigue. He then arrived at the ED at 1030pm. He was noted to have a 3mm ST elevation in the anterior leads on EKG. He was taken to the [facility] by Dr. Kaur. He was found to have a fully occluded proximal LAD. He had 2 drug eluting stents placed and was transferred to the ICU for further monitoring. Neal is currently resting comfortable in the ICU. He notes that his chest pain is much improved but is still a 1-2/10 in severity. He also feels very fatigued and mildly nauseated. 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 Allergies Allergy/AdvReac Type Severity Reaction Status Date / Time No Known Allergies Allergy Verified 04/12/18 23:37 Home Medications Home Medications Medication Instructions Recorded Confirmed Type No Known Home Medications 04/12/18 04/12/18 History Past Med/Surg History Medical History No known health problems No pertinent past medical history Surgical History No history of previous surgery Social History Current Living Situation: Family Feels Safe at Home: Yes Safety Concerns: Feels Safe At This Time Smoking Status: Never smoker Do You Dip or Chew Tobacco: No Second Hand Exposure: No Tobacco Cessation Education Requested by Patient: No Hx Alcohol Use: No Hx Substance Use: No Beliefs That Will Affect Care: None Preferred Language: Slovak Communication Ability: Effective 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 Review of Systems All systems reviewed & are unremarkable except as noted in HPI & below Physical Exam 2 Vital Signs (Past 24 Hours): Last Vital Signs Temp 37 C 04/13/18 06:53 Pulse 77 04/13/18 09:00 Resp 16 04/13/18 09:00 BP 112/81 04/13/18 09:00 Pulse Ox 93 04/13/18 09:00 Physical Exam: Gen: tired appearing but in no acute distress Cardiac: RRR, no murmurs rubs or gallops, no JVD Lungs: normal vesicular breath sounds bilaterally without any wheezes or crackles Abdomen: soft and non tender with normal bowel sounds Neck: no lymphadenopathy, no carotid bruits Lower extremities: no swelling, strong peripheral refill, cap refill <3 seconds Supervising Physician Co-Signing Physician Notes I personally examined the patient and verified all valencia points of history and exam, discussed case, and agree with decision making with Dr Rodriguez. Feeling better than whenever he came in, pain is down to about a 2 out of 10, he does note some nausea off and on. I was called to assess due to the nausea, the way it was portrayed to nursing it sounds like it was a new complaint, and of course they had concern about new angina. After an extensive discussion, and about half an hour in the room with the patient, it became more clear that he had had a lot of nausea that was far worse when his angina was worse as well. And that the current nausea has been similar in quality but far less in severity than before. Furthermore he no longer feels short of breath and his pain is markedly diminished. Vitals noted, in general he is awake alert oriented x3 fatigued appearing but no real distress. HEENT normal cephalic atraumatic mucous members are moist. Cardio is regular without rubs murmurs or gallops. Lungs clear to auscultation bilaterally no rales rhonchi or wheeze with good effort, skin shows no rashes, pallor, icterus or diaphoresis. Neuro shows no focal deficits. STEMIunfortunately this seems to be predominantly genetic, and without even really a dominant family history for it. His lipids, with hindsight, of course are high, but with foresight prior to having any vascular event, he really would have just met criteria for lifestyle change. It is possible he has occult hypertension, but this seems unlikely given the numbers were seeing here. He is not a diabetic, not a smoker, in general he seems to eat healthy and exercise regularly. Med management and aggressive secondary risk reduction. Otherwise as above, and as per cardiology.
--- NOTE | 2018-04-13 11:02 | Cardiology Progress Note ---
Date of Service April 13, 2018 Assessment & Plan (1) ST elevation [place] (STEMI): 2. Ischemic cardiomyopathyEF 35-40% 3. Ventricular ectopy 4. Dyslipidemia Patient chest pain-free this a.m. Hemodynamically stable. Ventricular ectopy overnight, reduced this a.m. Troponin greater than 200 today. Echo shows large LAD distribution wall motion abnormality. On exam well-perfused, no significant congestion. No access site complications. Continue dual antiplatelet therapy with aspirin, ticagrelor Titrate beta-destiny as able, continue current TIMMY inhibitor Continue high intensity statin Plan to repeat limited echo tomorrow to rule out LV thrombus, reassess LV function. At this point no plan for LifeVest. If stable during day potential transfer to telemetry later this afternoon. Appreciate ICU, hospital medicine team care Subjective Patient chest pain-free this morning. Shortness of breath improved following diuresis overnight. Minimal residual nausea. Telemetry reviewbrief nonsustained VT, ventricular ectopy improved this a.m. Review of Systems 10 point review of systems was completed and was otherwise negative unless stated in HPI Physical Exam 2 Vital Signs (Past 24 Hours): Last Vital Signs Temp 36.8 C 04/13/18 10:00 Pulse 65 04/13/18 10:00 Resp 18 04/13/18 10:00 BP 115/69 04/13/18 10:00 Pulse Ox 93 04/13/18 10:00 Physical Exam: General: Comfortable, no acute distress Eyes: Sclerae anicteric, extraocular movements intact HENT: Oropharynx clear mucous membranes moist Neck: Normal carotid upstrokes, no bruits. No JVD. Lungs: Clear to auscultation bilaterally, no rhonchi or wheezes Cardiac: Regular rate and rhythm, no murmurs, rubs or gallops. Vascular: Right radial artery access site with no ecchymosis, hematoma. Distal pulse and sensation intact. Abdomen: Soft, nontender, nondistended, positive bowel sounds. Extremities: Well perfused, no peripheral edema Skin: No rashes or lesions. Neuro: Nonfocal Psych: Alert orient x3, normal affect and mood Results & Data Diagnostic Findings Echo today: LVEF 35-40%, large LAD distribution wall motion abnormality. No significant valvular pathology.
[2018-04-13] MEDS: METOPROLOL TARTRATE 25 MG TAB PO SCH (20:29)
[2018-04-14 04:23] LABS: Hematocrit (blood only) 38.1 % (42-52); Hemoglobin 13.6 g/dL (14.0-18.0); Mean Corpuscular Hgb Conc 35.7 g/dL (32-36); Mean Corpuscular Volume 91.8 fL (80-100); Mean Platelet Volume 8.6 fL (7.4-10.4); Platelet Count 300 K/uL (130-400); RDW Coefficient of Variation 13.3 % (11.5-14.5); RDW Standard Deviation 44.5 fL (36.4-46.3); Red Blood Count 4.15 M/uL (4.7-6.1); White Blood Count 18.22 K/uL (4.8-10.8)
[2018-04-14 04:40] LABS: BUN Creatinine Ratio 15.1 (10-20); Calcium 8.1 mg/dl (8.5-10.1); Creatinine Clr Calc Pharmacy 79.6 ml/min; Est GFR (African American) 96.1; Magnesium 2.1 mg/dl (1.8-2.4); Potassium 3.9 mmol/L (3.5-5.1)
[2018-04-14 05:05] LABS: Phosphorus 1.7 mg/dl (2.5-4.9)
[2018-04-14] MEDS: LISINOPRIL 5 MG TAB PO SCH (08:29)
[2018-04-14] MEDS: TICAGRELOR 90 MG TAB PO SCH ×2 (08:29→20:25)
[2018-04-14] MEDS: ATORVASTATIN 40 MG TAB PO SCH (08:29)
[2018-04-14] MEDS: ASPIRIN 81 MG ECTAB PO SCH (08:29)
--- NOTE | 2018-04-14 08:46 | Cardiology Progress Note ---
Date of Service April 14, 2018 Assessment & Plan (1) ST elevation [place] (STEMI): He is doing relatively well post IA, he is not having recurrent chest discomfort. Is not surprising he does not feel quite normal. (2) Hypotension: His blood pressure is low, however he needs beta-blockade for his cardiomyopathy and his ventricular ectopy as well as his coronary disease and post myocardial infarction. He is already on a low dose. I am very reluctant to reduce it. I think we should continue it despite his low blood pressure, if he becomes symptomatic we may be forced to decrease it but I would not do that now. I would also continue his lisinopril for now. Subjective He feels fairly well today, no chest discomfort or shortness of breath. He is feeling a little washed out and he is complaining of a lack of appetite. No lightheadedness or dizziness despite his low blood pressure. Physical Exam 2 Vital Signs (Past 24 Hours): Last Vital Signs Temp 37.1 C 04/14/18 04:05 Pulse 71 04/14/18 06:00 Resp 24 04/14/18 06:00 BP 89/60 L 04/14/18 06:00 Pulse Ox 92 04/14/18 06:00 Physical Exam: Constitutional: Alert, cooperative and in no distress. Pulmonary: Clear to auscultation bilaterally. Cardiac: Regular rhythm with no murmur, gallop or rub. Abdomen: Soft, nontender with normal bowel sounds. Extremities: No edema. Skin: No rash, ecchymoses or petechiae. Results & Data Diagnostic Findings Sinus rhythm, no significant arrhythmia
[2018-04-14] MEDS: METOPROLOL TARTRATE 25 MG TAB PO SCH ×2 (08:55→22:15)
--- NOTE | 2018-04-14 09:47 | Critical Care Progress Note ---
Date of Service April 14, 2018 Assessment & Plan (1) Admitted to intensive care unit: Reason Critically Ill: 47-year-old male with acute anterior STEMI status post PTCA with GUILLAUME x2 to the LAD. NEURO - * CAM ICU: NEGATIVE * Pain: Attempt to delineate cardiac versus other sources of pain. * Morphine PRN * Nitro if BP allows. CARDIAC/VASCULAR - * Actue Anterior STEMI s/p PTCA w/ GUILLAUME x2 to the LAD: * STEMI: Overall is doing much better on current plan of care. Complately pain free at this time. * EKG: Improvement in ST segment elevation noted on initial EKG. * Monitor on telemetry. * Hypotension: His blood pressure is low, however he needs beta-blockade for his cardiomyopathy and his ventricular ectopy as well as his coronary disease and post myocardial infarction. He is already on a low dose. Will continue it despite his low blood pressure as per the cardiology recommendations. Lisinopril will be also continued. RESPIRATORY - * Hypoxia s/p STEMI w/ increased LV filling pressures. * Will add supplemental O2 PRN. * Gentle diuresis. * Consider CPAP. * Repeat CXR w/o new significant pulmonary edema. GI/NUTRITION - * Progress diet as tolerated. * Diet: AHA RENAL/LYTES - * No significant electrolyte derangements. * Will monitor closely s/p Lasix administration. * IVF: Hold IVF 2/2 hypoxia and c/o pulmonary edema. - * No concerns at this time. ENDO - * No h/o DM or Thyroid Dz. HEME - * Stable H&H * Monitor for s/s bleeding s/p Integrilin gtt. ID - * No c/o infectious contributions at this time. LINES/IV ACCESS - * PIVs x2 * RIGHT Radial TR Band in place. DVT PROPHYLAXIS - * Will hold on chemoprophylaxis 2/2 current Integrilin gtt w/ intent for transition to PO DAPT. * SCDs I have personally spent 45 minutes of critical care time in the direct management of this patient. This is a life/limb threatening event. This includes time spent evaluating patient, direct bedside care, chart review, placing orders, interpretation of diagnostic studies, discussion with consultants, patient, and family members, as well as other required patient management activities. This time is exclusive of all separately billable procedures, and teaching time and separate from and in addition to any other critical care service time. Thank you for allowing us to participate in the care of this patient. Please refer to my attending physician's documentation for any further recommendations. (2) ST elevation myocardial infarction (STEMI) of anterior wall, initial episode of care: (3) S/P PTCA (percutaneous transluminal coronary angioplasty): (4) S/P drug eluting coronary stent placement: (5) CAD (coronary artery disease): Subjective The patient overall is feeling much better and denies any distress or chest pain or fever or chills or SOB. Also denies any abdominal pain or N/Vomitting. Physical Exam 2 Vital Signs (Past 24 Hours): Last Vital Signs Temp 37.1 C 04/14/18 04:05 Pulse 71 04/14/18 06:00 Resp 24 04/14/18 06:00 BP 89/60 L 04/14/18 06:00 Pulse Ox 92 04/14/18 06:00 Constitutional: WD/WN, vitals as above Eyes: PERRL, conjunctivae normal, anicteric sclerae ENMT: external ear and nose normal, oropharynx normal Neck: trachea midline, no thyromegaly Respiratory: normal respiratory effort, lungs clear to auscultation Cardiovascular: RRR, no murmur, no edema Chest (Breasts): normal inspection/palpation of breasts Gastrointestinal (Abdomen): normal bowel sounds, soft, nontender, no hepatosplenomegaly Musculoskeletal: no cyanosis or clubbing, extremities motor strength 5/5 Skin: no rashes, warm and dry Neurologic: patellar DTR's 2+ bilat, sensation intact and PERRL, EOMI, accommodation nl, no face palsy, no dysarthria Psychiatric: A+Ox3, euthymic affect Lymphatic: no cervical or axillary lymphadenopathy
--- NOTE | 2018-04-14 11:26 | Family Medicine Progress Note ---
Date of Service April 14, 2018 Assessment & Plan (1) ST elevation UT (STEMI): Neal is a 47 year old male with no significant past medical history that presented to [facility] with central 10/10 chest pain and was found to have a ST elevated UT. He was taken to the labor relations manager and found to have a 100% proximal occlusion of his LAD and had 2 drug eluting stents placed His blood pressure is on the low side, after discussion with cardiology they want to keep him on his current dose. The patient does feel subjectively fatigued and mildly short of breath. I wonder if his beta destiny is contributing to this. Due to the finding of mild elevation in JVD on HJR I will go ahead and obtain a CXR today to evaluate for pulmonary edema as his EF is likely significantly lower post UT. Plan to transfer to telemetry now. STEMI - currently being monitored in the ICU--->plan to transfer to telemetry now - dual antiplatelet therapy with brillinta and aspirin - TIMMY inhibitor with lisinopril 5mg - BB with metoprolol 12.5mg bid - High intensity statin with atorvastatin 80mg - Tylenol and morphine ordered prn for pain - Risk factor screening: Lipids (LDL 143, HDL 39), HgbA1c (5.0) - Echo showed: LVH and wall motion abnormality in the area of the LAD distribution. His EF is now 35-40% - Patient would benefit from cardiac rehab Diet: Heart Healthy Code: Full Dispo: Discharge home tomorrow pending patient recovery and symptoms DVT: Patient encouraged to get out of bed and ambulate (2) Pneumonia: -Impossible to discern if this was a mild community-acquired pneumonia present prior to admission, or a hospital-acquired pneumonia starting while he is here. His MRSA nares is negative, therefore antibiotic coverage with Zosyn Supervising Physician Co-Signing Physician Notes I personally examined the patient and verified all valencia points of history and exam, discussed case, and agree with decision making with Dr Rodriguez. main complaint today is fatigue. He does have a little bit of a cough hour talking Vitals noted, in general he is awake alert oriented x3 fatigued appearing but no real distress. HEENT normal cephalic atraumatic mucous members are moist. Cardio is regular lungs are unlabored no accessory muscle use, he does have a cough STEMImed management and secondary risk reduction, he appears to be stabilizing overall Pneumoniaas above, and possible to discern community-acquired versus healthcare associated given the circumstances. Zosyn Otherwise as above, and as per cardiology. Subjective Patient was seen at the bedside with his . He notes that he feels very fatigued. He also notes that he feels short of breath at rest. He denies any cough, chest pain, palpitations, vomiting, diarrhea, fevers or chills. He also notes that he feels nauseated. Review of Systems All systems reviewed & are unremarkable except as noted in HPI & below Physical Exam 2 Vital Signs (Past 24 Hours): Last Vital Signs Temp 37.0 C 04/14/18 08:00 Pulse 70 04/14/18 10:00 Resp 27 H 04/14/18 10:00 BP 79/56 L 04/14/18 10:00 Pulse Ox 95 04/14/18 10:00 Physical Exam: Gen: tired appearing but in no acute distress Cardiac: RRR, no murmurs rubs or gallops, Lungs: normal vesicular breath sounds bilaterally without any wheezes or crackles Abdomen: soft and non tender with normal bowel sounds Neck: no lymphadenopathy, no carotid bruits, JVD elevated with HPJ reflex to mid -neck Lower extremities: no swelling, strong peripheral refill, cap refill <3 seconds
[2018-04-14] MEDS ORDERED: SODIUM PHOSPHATE 3 MMOL/1 ML 5 ML VIAL IV ONE (11:53)
[2018-04-14] MEDS ORDERED: SODIUM PHOSPHATE 21 MMOL in SODIUM CHLORIDE 0.9% 500 ML IV ONE (12:00)
--- NOTE | 2018-04-14 12:00 | XRay Report ---
TWO VIEW CHEST CLINICAL HISTORY: Dyspnea. FINDINGS: PA and lateral chest radiographs are compared to study dated 04/13/2018. The heart is top nor mal for projection. A coronary artery stent is identified. The mediastinal contour is within normal l imits. There is airspace consolidation at the left lung base. A trace left pleural effusion is noted. There is no pneumothorax. The bony thorax appears intact. IMPRESSION: There is left basilar consolidation and a small left pleural effusion. The appearance is typical for pneumonia. Clinical correlation will be required and radiographic follow-up to resolution is recommended. Electronically signed by: Michael Delgado M.D. 04/14/2018 11:59 AM
[2018-04-14] MEDS ORDERED: PIPERACILL/TAZOBAC CONSULT ACTIVE PRN (14:59)
[2018-04-14] MEDS ORDERED: PIPERACILLIN/TAZOBACTAM 4.5 GM in DEXTROSE 5% 100 ML IV ONE (16:00)
[2018-04-14] MEDS ORDERED: PIPERACILLIN/TAZOBACTAM 3.375 GM in DEXTROSE 5% 100 ML IV ONE (16:00)
[2018-04-14] MEDS: PIPERACILLIN/TAZOBACTAM 4.5 GM in DEXTROSE 5% 100 ML IV SCH (22:16)
[2018-04-15 00:19] LABS: Appearance Urine Clear (Clear); Bilirubin Urine Negative (Negative); Blood Urine Negative (Negative); Color Urine Yellow; Glucose Urine UA Negative (Negative); Ketones Urine 1+ (Negative); Leukocyte Esterase Urine Negative (Negative); Nitrite Urine Negative (Negative); Protein Urine Negative (Negative); Specific Gravity Urine 1.029 (1.000-1.030); Urobilinogen Urine Negative (Negative)
[2018-04-15] MEDS ORDERED: ALBUT/IPRATROP 3MG/0.5MG NEB 3 ML VIAL NEB STA (02:59)
[2018-04-15 04:26] LABS: Basophils # (auto) 0.02 K/uL (0-0.2); Basophils % (auto) 0.1 %; Eosinophils # (auto) 0.01 K/uL (0-0.5); Eosinophils % (auto) 0.1 %; Hematocrit (blood only) 37.2 % (42-52); Hemoglobin 13.2 g/dL (14.0-18.0); Immature Granulocytes # (auto) 0.06 K/uL (0.00-0.02); Immature Granulocytes % (auto) 0.4 %; Lymphocytes % (auto) 9.1 %; Mean Corpuscular Volume 91.2 fL (80-100); Monocytes # (auto) 1.87 K/uL (0.11-0.59); Monocytes % (auto) 11.3 %; Neutrophils # (auto) 13.07 K/uL (1.4-6.5); Platelet Count 280 K/uL (130-400); RDW Coefficient of Variation 13.1 % (11.5-14.5); RDW Standard Deviation 43.6 fL (36.4-46.3); Red Blood Count 4.08 M/uL (4.7-6.1); White Blood Count 16.53 K/uL (4.8-10.8)
[2018-04-15 04:29] LABS: Mean Corpuscular Hgb Conc 35.5 g/dL (32-36)
[2018-04-15 04:45] LABS: Albumin Level 2.8 gm/dl (3.4-5.0); BUN Creatinine Ratio 13.1 (10-20); Calcium 7.7 mg/dl (8.5-10.1); Creatinine Clr Calc Pharmacy 58.4 ml/min; Est GFR (African American) 66.2; Est GFR (Non-African American) 57.1; Magnesium 1.9 mg/dl (1.8-2.4); Potassium 3.8 mmol/L (3.5-5.1)
[2018-04-15 04:48] LABS: Albumin Globulin Ratio 0.8 (0.9-2); Bilirubin,Total 1.1 mg/dl (0.2-1); Globulin 3.4 gm/dl (2.5-4.0); Total Protein 6.2 gm/dl (6.4-8.2)
[2018-04-15 05:48] LABS: Troponin I 65.7 ng/ml (0-0.045)
[2018-04-15] MEDS: PIPERACILLIN/TAZOBACTAM 4.5 GM in DEXTROSE 5% 100 ML IV SCH ×3 (05:49→21:02)
[2018-04-15] MEDS ORDERED: SODIUM CHLORIDE 0.9% 1000ML 500 ML IV ONE ×2 (06:06→07:06)
[2018-04-15] MEDS ORDERED: ALBUMIN 25% 50 ML IV ONE ×2 (06:13→06:28)
--- NOTE | 2018-04-15 06:17 | Family Medicine Progress Note ---
Date of Service April 15, 2018 Assessment & Plan (1) Hypotension: (2) Pneumonia: (3) ST elevation AZ (STEMI): Was called at 0245 regarding increasing oxygen requirements, O2 sats of 89 % on 2L, which had previously kept him >92. On evaluation, patient was tachypnic with increased work of breathing, bibasilar crackles. He reported fatigue, and chest discomfort but could not state whether the chest discomfort was new or similar to post-stent placement discomfort. Duoneb was administered. Patient felt "a little better" but required 4L oxygen to maintain sat at 92%. Stat CXR was ordered along with stat labs (CBC, CMP, trop, mag). XR showed fluid overload and subjective enlargement of heart. Troponin decreased from 120- ->65, DAR, transaminitis, hypoalbuminemia. Patient's BPs were running high 70s/ 50s (roughly equivalent to where he had been in past 24 hours). EKG was ordered which showed new ST Elevation in V5-V6. Primary cardiology service was contacted in regards to administering lasix in setting of low pressures. Discussed repeating echo in setting of ?new CHF just >48 hours s/p GUILLAUME placement. Concern was for possible tamponade in setting of pressures and fluid overload. Patient was moved to intensive care unit for further management. Dr. Leahy of interventional cardiology was called. Bedside ultrasound was obtained in ICU, and Dr. Leahy directed to give 500cc NSS bolus over 30 minutes. Care was transitioned to intensive care team. 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
--- NOTE | 2018-04-15 06:28 | Critical Care Progress Note ---
Date of Service April 15, 2018 Assessment & Plan (1) Admitted to intensive care unit: Reason Critically Ill: 47-year-old male with acute anterior STEMI status post PTCA with GUILLAUME x2 to the LAD. Now with new LEFT lower lobe infiltrate and worsening pulmonary edema w/ persistent O2 requirement. NEURO - * CAM ICU: NEGATIVE * Pain: Attempt to delineate cardiac versus other sources of pain. * Morphine PRN CARDIAC/VASCULAR - * Actue Anterior STEMI s/p PTCA w/ GUILLAUME x2 to the LAD: * STEMI: Overall is doing much better on current plan of care. Complately pain free at this time. Chest pain only with cough. * EKG: New slight ST elevations noted in lateral leads. * Move back to ICU. * Appreciate cardiology/airplane cover maker guidance. * Limited bedside echo performed by myself shows decreased LV function with collapsible RV. Question of possible thrombus like structure on LV wall. All per my limited interpretation. Will certainly defer to formal study later this AM. * Repeat AM Echo. * Monitor on telemetry. * Persistent hypotension - worsening this morning. * Will defer to cardiology for continued BP Rx and ASCVD Rx. * Will also start the patient on BiPAP and maintain saturation in high 90s. * If the blood pressure do not improve, will consider the central line IJ and start him on pressures. RESPIRATORY - * Hypoxia s/p STEMI w/ new LLL PNA w/ new pulmonary edema. * Continue w/ supplemental O2 * Diuresis. * Consider BiPAP. * The patient was exposed to his who was sick with respiratory symptoms for 4+ days and both of them never had the flu vaccination. The patient do not know if she had the flu. Will send for the stat Influenza A and B evaluation. Also will continue with current plan of care as prescribed. GI/NUTRITION - * Progress diet as tolerated. * Diet: AHA RENAL/LYTES - * New DAR present when compared to previous labs: * Likely volume down at this point. * 500mL bolus per interventionalist. * Will add albumin as well. * No significant electrolyte derangements. * Will monitor closely s/p Lasix administration. - * No concerns at this time. ENDO - * No h/o DM or Thyroid Dz. HEME - * Stable H&H * Monitor for s/s bleeding s/p Integrilin gtt. ID - * No c/o infectious contributions at this time. LINES/IV ACCESS - * PIVs x2 DVT PROPHYLAXIS - * SCDs I have personally spent 35 minutes of critical care time in the direct management of this patient. This is a life/limb threatening event. This includes time spent evaluating patient, direct bedside care, chart review, placing orders, interpretation of diagnostic studies, discussion with consultants, patient, and family members, as well as other required patient management activities. This time is exclusive of all separately billable procedures, and teaching time and separate from and in addition to any other critical care service time. Thank you for allowing us to participate in the care of this patient. Please refer to my attending physician's documentation for any further recommendations. (2) ST elevation myocardial infarction (STEMI) of anterior wall, initial episode of care: (3) S/P PTCA (percutaneous transluminal coronary angioplasty): (4) S/P drug eluting coronary stent placement: (5) CAD (coronary artery disease): Subjective Throughout the night, the patient did have persistent hypotension and worsening oxygen requirement. He was placed on 4 L nasal cannula. Repeat chest x-ray was concerning for worsening LEFT lower lobe infiltrative change as well as worsening pulmonary edema. Primary service did speak with cardiology suggest diuresis at this time. The patient is hypotensive. He will be moved to the unit for continued monitoring. Upon arrival, the patient is awake, alert, and oriented. He does report feeling generally weak and tired. He reports that he has had some difficulty with breathing. He reports chest pain only with cough. No continued persistent chest pain from his initial presentation with [place]. Physical Exam 2 Vital Signs (Past 24 Hours): Last Vital Signs Temp 37.6 C H 04/15/18 02:39 Pulse 76 04/15/18 03:36 Resp 18 04/15/18 03:19 BP 76/50 L 04/15/18 02:39 Pulse Ox 96 04/15/18 03:36 Physical Exam: VITAL SIGNS - Vital signs and nursing notes were reviewed. GENERAL - 47-year-old male appearing his stated age who is in no acute distress. Communicates well with provider and answers questions appropriately. HEAD - NC/AT. EYES - PERRL with EOMI bilaterally. Sclera anicteric. NECK - Neck with FROM. LUNGS - Chest wall symmetric without accessory muscle use, intercostals retractions, or central cyanosis. Bibasilar rales, LEFT greater than right. No wheezes or rhonchi appreciated. CARDIAC - RRR with S1/S2. No murmur, rubs, or gallops appreciated. No reproducible tenderness to palpation appreciated over the anterior chest wall. ABDOMEN - Abdominal contour flat without pulsations or visible masses. BS normoactive all four quadrants. No tenderness, palpable masses, hepatosplenomegaly, or ascites noted. EXTREMITIES - No clubbing or peripheral cyanosis. No pretibial edema present. +3 /5 radial and dorsalis pedis pulses palpated throughout. +5/5 strength noted in UE/LE bilaterally. NEUROLOGIC - Cranial nerves II through XII grossly intact. Sensory intact to light touch throughout. PSYCH - A&Ox3 and cooperates fully with examiner. Pt is very pleasant and interacts well with examiner.
--- NOTE | 2018-04-15 07:12 | XRay Report ---
XR chest 1V portable HISTORY: Shortness of breath. COMPARISON: Chest 04/14/2018. FINDINGS: No pneumothorax. The heart is enlarged. There is diffuse interstitial and vascular thickeni ng which has progressed. This is consistent with pulmonary edema. Small left pleural effusion has dev eloped. Left basilar densities persist. IMPRESSION: Interval development of mild pulmonary edema. Electronically signed by: Derrick Hartman M.D. 04/15/2018 7:11 AM
[2018-04-15] MEDS: LISINOPRIL 5 MG TAB PO SCH (08:33)
[2018-04-15] MEDS: TICAGRELOR 90 MG TAB PO SCH ×2 (09:22→21:00)
[2018-04-15] MEDS: ATORVASTATIN 40 MG TAB PO SCH (09:22)
[2018-04-15] MEDS: ASPIRIN 81 MG ECTAB PO SCH (09:22)
[2018-04-15] MEDS: METOPROLOL TARTRATE 25 MG TAB PO SCH ×2 (09:54→21:59)
[2018-04-15 10:12] LABS: Influenza A virus by PCR Neg for Influ A (Neg); Influenza B virus by PCR Neg for Influ B (Neg)
--- NOTE | 2018-04-15 11:10 | Cardiology Progress Note ---
Date of Service April 15, 2018 Assessment & Plan (1) ST elevation CA (STEMI): 2. Respiratory failure requiring bipap - question PNA vs pulmonary edema 3. Hypotension/shock 4. DAR 5. Transaminitis 6. Ischemic cardiomyopathy, EF 35-40% Escalation in care overnight due to respiratory distress, slowly progressive hypotension. Remains on Bipap this morning. BP remains stably low despite volume overnight. Oliguric with new DAR Cardiogenic versus septic shock Exam more consistent with distributive picture - extremities warm/no JVD LV function unchanged on echo and no evidence of tamponade or mechanical complications on limited echo. -- additional echo images with doppler to further assess hemodynamics filling pressures, rule-out VSD -- for now continue to treat as sepsis - on broad spectrum antibiotics. - additional IV fluids, start norepi if MAPs persistently < 65 - repeat BMP/lactate this afternoon, continue to follow urine output -- Continue DAPT, statin -- if picture remains unclear later today -- low threshold for RHC/swan. Subjective Patient with increased respiratory distress and hypotension overnight. No recurrent chest pain. CXR with questionable LLL infiltrate vs pulmonary edema. Placed on Bipap, FiO2 50% Received IV fluids, albumin and started on zosyn I/O over last 24 hrs 2L in, minimal UOP. systolic pressures in 80s, MAPs low 60s This morning -- Low grade fever this AM to 37.9, WBC from 18->16 SCr 1 --> 1.4, New transaminitis, procalcitonin 0.1, lactate 2.0 ECG with persistent anterolateral ST elevations Troponin still downtrending Limited 2D echo, EF 35-40%, LAD distribution akinesis. No LV thrombus. Trivial pericardial effusion. Normal RV size and function. Review of Systems All systems reviewed & are unremarkable except as noted in HPI & below Physical Exam 2 Vital Signs (Past 24 Hours): Last Vital Signs Temp 37.1 C 04/15/18 10:00 Pulse 72 04/15/18 10:00 Resp 24 04/15/18 10:00 BP 83/52 L 04/15/18 10:00 Pulse Ox 99 04/15/18 10:00 Physical Exam: Gen: Bipap in place, comfortable, able to carry on conversation. Heent: sclera anicteric ENT: mmm Neck: no JVD, JVP ~6 Lungs: decreased breath sounds at bases bilaterally, few scant crackles on left CV: RRR, no murmurs. Extremities warm, no edema. right radial pulse intact no hematoma/ecchymosis Abd: soft, NT Skin: no rashes. Neuor: AOx3, non-focal
[2018-04-15] MEDS ORDERED: SODIUM CHLORIDE 0.9% 500 ML IV SCH (16:00)
--- NOTE | 2018-04-15 17:10 | Family Medicine Progress Note ---
Date of Service April 15, 2018 Assessment & Plan (1) ST elevation [place] (STEMI): Neal Jones is a 47 y.o male with no significant past medical history admitted with severe chest pain and found to have STEMI. He is s/p 2 GUILLAUME placed in the LAD now with septic shock secondary to pneumonia. 1. Septic shock - Secondary to LLL pneumonia and worsened by increased myocardial demand after STEMI -Unlikely to be cardiogenic shock due to presentation of shock > 5hrs post [place] -Has been receiving Zosyn per IV for pneumonia -afebrile with WBC of 16.53 -Overnight became hypotensive with increased O2 requirements from 2L to 4L -s/p transfer to the ICU for volume resuscitation and management of volume overload from weakened cardiac function -He is currently on Bipap with sats at 98% and is tolerating it well -He is s/p intermittent administration of fluid boluses and has received 1500cc total -Goal MAP of 65mmHg -Will continue to monitor pt's response to fluid bolus and monitor urine output -Bladder scan showed 200cc; anticipate oliguria to resolve as shock resolves -Continue to monitor in ICU until normotensive and urine output 0.5cc/kg/hr 2. STEMI -s/p 2 GUILLAUME placed in LAD -Troponin elevated at 65 but trending down -EKG with continued lateral lead ST elevation which is to be expected up to 3 days post [place] -ECHO with LVEF of 35-40% with moderate concentric LVH, there is no thrombus -continue to monitor in ICU -Continue Dual antiplatelet therapy: Brillinta, ASA -Continue ACEI, Continue Atorvastatin 80mg 3. Left lower lobe pneumonia -Continue Zosyn 4. DAR -Secondary to septic shock registering as hypovolemia -BUN/Cr of 19/1.43 -Currently oliguric with 200cc of urine in bladder -Will continue to monitor -should resolve with fluid resuscitation and return to normotensive state 5. Transaminitis -Secondary to septic shock -AST/ALT 283/107 -Will continue to monitor FEN/GI Fluids: Intermittent 500cc fluid bolus Electrolytes: monitor and replace as needed Diet: NPO; change to heart healthy when able GI PPX: None DVT PPX: SCD Code status: Full Code Dispo: Requires ICU status. Discharge to home likely with PT/OT when medically stable. (2) S/P drug eluting coronary stent placement: (3) CAD (coronary artery disease): (4) Pneumonia: (5) Septic shock: Supervising Physician Co-Signing Physician Notes I personally examined the patient and verified all valencia points of history and exam, discussed case, and agree with decision making with Dr Carbajal. Breathing okay, no chest pain. Case discussed with nursing and cardiology. Events of last night noted. Vitals noted, he is on BiPAP appearing fatigued but no true distress. HEENT normocephalic atraumatic mucous membranes are moist. Lungs show very very faint rales base left otherwise no rales rhonchi or wheeze with good effort. Skin shows no rashes no pallor or icterus. STEMIsecondary risk reduction and vigilance. He does appear to be stabilizing this regard Pneumonia with sepsisas noted yesterday, it is impossible to tell if this was a pneumonia that preceded his hospitalization or if it started during the hospital stay. Certainly his initial chest x-ray was clear and it evolved later begging the question of healthcare associated. His MRSA nares is negative , continue Zosyn and supportive care. Septic shockhis situation fits much more with septic and cardiogenic, he is showing no clear late complications of his rather sizable [place] either, making it more likely this is septic shock. Continue to cautiously bolusing with fluids and reassessing. [place] Irelated to shockcontinue cautious fluid bolus and reassessment. Otherwise as above Subjective Overnight Neal had increasing shortness of breath requiring 4L O2 per NC. He was found to have LLL edema and became hypotensive. He was transferred to the ICU and given 500cc fluid bolus. Placed on BIPAP. He responded well to the bolus and recommendations were made to continue gentle administration of bolus fluids with close monitoring of I/O. This morning he is alert and resting in bed. He denies shortness of breath, he denies chest pain, he denies n/v. Neal denies pain and is tolerating BiPap well. Constitutional: + fatigue; no fever and no chills Eyes: no discharge Ear, Nose, Mouth, Throat: no nasal congestion and no sore throat Respiratory: + cough; no pain on inspiration and no pain with cough Cardiovascular: no chest pain, no radiating jaw, neck or arm pain, no palpitations and no edema Gastrointestinal: no abdominal pain and no constipation Genitourinary (Male): no dysuria Musculoskeletal: no back pain and no neck pain Integumentary: no rash and no lesions Neurologic: no tingling and no numbness Psychiatric: no anxiety Hematologic / Lymphatic: no easy bleeding and no easy bruising Physical Exam 2 Vital Signs (Past 24 Hours): Last Vital Signs Temp 37.5 C 04/15/18 11:00 Pulse 75 04/15/18 16:00 Resp 24 04/15/18 16:00 BP 86/56 L 04/15/18 16:00 Pulse Ox 98 04/15/18 16:00 Constitutional: well developed, + ill appearing, average body habitus, cooperative and comfortable; no acute distress Eyes: EOM intact bilaterally ENMT: external ear and nose normal, oropharynx normal Respiratory: no respiratory distress BiPap in place Breathing comfortably Bilateral lower lobes with rales, no wheezes or rhonchi Cardiovascular: RRR, no murmur, no edema Heart Sounds: normal S1 and normal S2 Vessels: normal peripheral pulses Chest (Breasts): Chest: normal inspection of chest Gastrointestinal (Abdomen): normal bowel sounds, soft, nontender, no hepatosplenomegaly Musculoskeletal: no cyanosis or clubbing, extremities motor strength 5/5 Skin: no rashes, warm and dry Psychiatric: Orientation: alert and oriented x 3 Results & Data Laboratory Results WBC 16.53 Neut: 13 BUN/Cr 19/1.43 AST/ALT 283/207 Trop 65.7 Diagnostic Findings CXR: left pleural effusion, left basilar densities ECHO: LVEF 35-40% with moderate concentric LVH, there is no thrombus ECG Additional Comments: ST elevation V5-V6
[2018-04-15 18:38] LABS: BUN Creatinine Ratio 14.9 (10-20); Calcium 7.5 mg/dl (8.5-10.1); Est GFR (African American) 65.6; Est GFR (Non-African American) 56.6; Potassium 3.5 mmol/L (3.5-5.1)
[2018-04-15 20:40] LABS: INR 1.2 (0.9-1.1); Partial Thromboplastin Ratio 1.2; Partial Thromboplastin Time 30.1 Seconds (21.0-31.0); Prothrombin Time 11.8 Seconds (9.0-12.0)
[2018-04-15] MEDS: HEPARIN SOD 5,000 UNIT/0.5 ML VIAL SQ SCH (21:28)
[2018-04-16] MEDS ORDERED: SODIUM CHLORIDE 0.9% 1000ML 500 ML IV ONE (04:05)
[2018-04-16 04:50] LABS: Eosinophils # (auto) 0.03 K/uL (0-0.5); Eosinophils % (auto) 0.3 %; Hemoglobin 12.2 g/dL (14.0-18.0); Immature Granulocytes # (auto) 0.03 K/uL (0.00-0.02); Immature Granulocytes % (auto) 0.3 %; Lymphocytes # (auto) 0.89 K/uL (1.2-3.4); Lymphocytes % (auto) 7.9 %; Mean Corpuscular Hgb Conc 34.9 g/dL (32-36); Mean Corpuscular Volume 90.2 fL (80-100); Mean Platelet Volume 9.2 fL (7.4-10.4); Monocytes # (auto) 1.25 K/uL (0.11-0.59); Monocytes % (auto) 11.2 %; Neutrophils % (auto) 80.3 %; Platelet Count 281 K/uL (130-400); RDW Coefficient of Variation 12.9 % (11.5-14.5); RDW Standard Deviation 41.9 fL (36.4-46.3); Red Blood Count 3.88 M/uL (4.7-6.1)
[2018-04-16 05:10] LABS: Albumin Level 2.5 gm/dl (3.4-5.0); BUN Creatinine Ratio 14.7 (10-20); Bilirubin Direct 0.4 mg/dl (0-0.2); Calcium 7.6 mg/dl (8.5-10.1); Creatinine Clr Calc Pharmacy 73.3 ml/min; Est GFR (Non-African American) 75.1; Potassium 3.5 mmol/L (3.5-5.1)
[2018-04-16] MEDS: PIPERACILLIN/TAZOBACTAM 4.5 GM in DEXTROSE 5% 100 ML IV SCH (05:19)
[2018-04-16 05:23] LABS: Bilirubin,Total 1.5 mg/dl (0.2-1); Phosphorus 2.8 mg/dl (2.5-4.9); Total Protein 5.9 gm/dl (6.4-8.2)
--- NOTE | 2018-04-16 07:08 | XRay Report ---
XR chest 1V portable CLINICAL HISTORY: Shortness of breath. Pulmonary edema. COMPARISON STUDY: 04/15/2018 FINDINGS: The heart remains enlarged. There is continued radiographic evidence of pulmonary edema. Th ere are increasing pleural effusions with associated basilar opacities likely representing compressiv e atelectasis.[ IMPRESSION: Persistent pulmonary edema with increasing pleural effusions. Electronically signed by: Jayden Patel M.D. 04/16/2018 7:07 AM
[2018-04-16] MEDS ORDERED: BISACODYL 10 MG SUPP PR STA (08:45)
--- NOTE | 2018-04-16 08:49 | Critical Care Progress Note ---
Date of Service April 16, 2018 Assessment & Plan (1) Hypotension: (2) Pneumonia: (3) ST elevation [place] (STEMI): 47-year-old male with acute anterior STEMI status post PTCA with GUILLAUME x2 to the LAD. Now mildly hypotensive with LEFT lower lobe infiltrate and persistent pulmonary edema w/ O2 requirement. NEURO: CAM ICU: NEGATIVE Pain: Tylenol and Morphine PRN CARDIAC/VASCULAR: Persistent hypotension in the setting of acute anterior STEMI s/p PTCA w/ GUILLAUME x2 to the LAD R heart cath/[place] cath today: normal cardiac output, mildly elevated L- sided filing pressures and borderline post capillary pulmonary hypertension, normal systolic vascular resistance EK NSR with lateral infarct chnages and QTc 408 ECHO: EF 35-40%, moderate concentric LVH, no thrombus, LAD distribution wall motion abnormality, nl RV systolic function, trace MV regurg, trivial pericardial effusion CXR: persistent pulmonary edema with increased pleural effusion Cardiology on board - recommending gentle diuresis (given lasix 20mg IV x 1) Continue aspirin, lipitor, lisinopril, Brilinta and metoprolol RESPIRATORY: Hypoxia s/p STEMI w/ new LLL PNA w/ new pulmonary edema CXR: persistent pulmonary edema with increased pleural effusion Continue supplemental O2 Diuresis - Given Lasix 20mg IV x 1 GI/NUTRITION: Bowel regimen ordered Mildly elevated LFT likely in the setting of STEMI - improving Diet: AHA RENAL/LYTES: Mild DAR - resolved s/p IVF Off IVF Electrolytes wnl : No concerns at this time. ENDO: No h/o DM or Thyroid Dz. HEME: Stable H&H Continue to monitor CBC ID: No c/o infectious contributions at this time Procal 0.14 On Augmentin (transitioned to PO antibiotic, continue for another 24 hrs) LINES/IV ACCESS: PIVs x2 DVT PROPHYLAXIS: Heparin 5000 SQ Q12H Code: Full Dispo: pending clinical improvement Supervising Physician Co-Signing Physician Notes Dr. Coyne was resident physician during care of patient. I separately evaluated patient for valencia portions of the history and the exam. I was present during the critical portion of medical decision making, and I discussed the case with the resident. I generally agree with the findings and plan. Persistent hypotension in the setting of acute NH. I discussed the case with Dr. Kaur. I also discussed the case in multidisciplinary rounds. Will diurese the patient today anticipate possible [place] catheter to better elucidate exact hemodynamics. Patient without complaint. Continuing antibiotics for additional 24 hours, okay to convert to oral, I anticipate the patient has a minimum an aspiration pneumonitis and increasing pleural effusions bilaterally. I have personally spent 45 minutes of critical care time in the direct management of this patient. This is a life/limb threatening event. This includes time spent evaluating patient, direct bedside care, chart review, placing orders, interpretation of diagnostic studies, discussion with consultants, patient, and/or family members regarding treatment decisions, as well as other required patient management activities. This time is exclusive of all separately billable procedures, and teaching time and separate from and in addition to any other critical care service time. Clinical update: Patient received right heart cath, pressures mildly elevated [place] not left in. Subjective This AM pt was resting comfortably in bed and sating well on 2L NC. He continued to remain hypotensive. He denies any SHAW/dizziness, chest pain, sob, nausea, vomiting, abdomianl pain, fevers or chills Physical Exam 2 Vital Signs (Past 24 Hours): Last Vital Signs Temp 37.1 C 04/16/18 05:01 Pulse 83 04/16/18 06:00 Resp 27 H 04/16/18 06:00 BP 84/52 L 04/16/18 06:00 Pulse Ox 94 04/16/18 06:00 Physical Exam: General: In NAD CV: RRR, no m/r/g Pulm: crackles appreciated at RML and RLL regions, equal breath sounds bilaterally Abdomen: +BS, non-distended, nontender to palpation in all quadrants LE: no calf tenderness or LE edema bilaterally Results & Data Laboratory Results Abnormal lab results 04/15/18 04/15/18 04/16/18 Range/Units 18:13 19:51 04:38 WBC 11.20 H (4.8-10.8) K/uL RBC 3.88 L (4.7-6.1) M/uL Hgb 12.2 L (14.0-18.0) g/dL Hct 35.0 L (42-52) % Immature Gran # (Auto) 0.03 H (0.00-0.02) K/uL Neut # (Auto) 9.00 H (1.4-6.5) K/uL Lymph # (Auto) 0.89 L (1.2-3.4) K/uL [place] # (Auto) 1.25 H (0.11-0.59) K/uL INR 1.2 H (0.9-1.1) POC VBG pH (7.36-7.41) POC VBG pCO2 (38-50) mmHg POC VBG HCO3 (23-28) meq/L POC VBG Total CO2 (24-31) mEq/l POC Venous O2 Sat (70-80) % BUN 21 H (7-18) mg/dl Creatinine 1.44 H (0.6-1.4) mg/dl Glucose 139 H (70-99) mg/dl Calcium 7.5 L (8.5-10.1) mg/dl Total Bilirubin (0.2-1) mg/dl Direct Bilirubin (0-0.2) mg/dl AST (15-37) U/L Total Protein (6.4-8.2) gm/dl Albumin (3.4-5.0) gm/dl 04/16/18 04/16/18 Range/Units 04:38 11:03 WBC (4.8-10.8) K/uL RBC (4.7-6.1) M/uL Hgb (14.0-18.0) g/dL Hct (42-52) % Immature Gran # (Auto) (0.00-0.02) K/uL Neut # (Auto) (1.4-6.5) K/uL Lymph # (Auto) (1.2-3.4) K/uL [place] # (Auto) (0.11-0.59) K/uL INR (0.9-1.1) POC VBG pH 7.44 H (7.36-7.41) POC VBG pCO2 31 L (38-50) mmHg POC VBG HCO3 21 L (23-28) meq/L POC VBG Total CO2 22 L (24-31) mEq/l POC Venous O2 Sat 62.0 L (70-80) % BUN (7-18) mg/dl Creatinine (0.6-1.4) mg/dl Glucose (70-99) mg/dl Calcium 7.6 L (8.5-10.1) mg/dl Total Bilirubin 1.5 H (0.2-1) mg/dl Direct Bilirubin 0.4 H (0-0.2) mg/dl AST 131 H (15-37) U/L Total Protein 5.9 L (6.4-8.2) gm/dl Albumin 2.5 L (3.4-5.0) gm/dl Diagnostic Findings XR chest 1V portable CLINICAL HISTORY: Shortness of breath. Pulmonary edema. COMPARISON STUDY: 04/15/2018 FINDINGS: The heart remains enlarged. There is continued radiographic evidence of pulmonary edema. There are increasing pleural effusions with associated basilar opacities likely representing compressive atelectasis.[ IMPRESSION: Persistent pulmonary edema with increasing pleural effusions. Medications Administered Current Inpatient Medications Acetaminophen (Tylenol) 650 mg PO Q4H PRN PRN Reason: Mild Pain (scale 1-3) Stop: 05/13/18 01:09 Last Admin: 04/15/18 13:24 Dose: 650 mg Amoxicillin/Clavulanate Potassium (Augmentin 875mg) 1 tab PO Q12H [facility] Stop: 04/23/18 17:59 Aspirin (Ecotrin Ectab) 81 mg PO QAM [facility] Stop: 05/13/18 08:59 Last Admin: 04/16/18 09:49 Dose: 81 mg Atorvastatin Calcium (Lipitor) [facility] [place] Stop: 05/13/18 08:59 Last Admin: 04/16/18 09:49 Dose: 80 mg Heparin Sodium (Porcine) (Heparin Sodium (Porcine)) 5,000 units SQ Q12 [facility] Stop: 05/15/18 20:59 Last Admin: 04/16/18 09:49 Dose: 5,000 units Lisinopril (Zestril) 5 mg PO QAM [facility] Stop: 05/13/18 08:59 Last Admin: 04/16/18 09:22 Dose: Not Given Metoprolol Tartrate (Lopressor) 25 mg PO BID [facility] Stop: 05/13/18 20:59 Last Admin: 04/16/18 09:22 Dose: Not Given Morphine Sulfate (Morphine Sulfate) 2 mg IV Q2H PRN PRN Reason: moderate to severe pain Stop: 04/27/18 01:09 Last Admin: 04/13/18 02:02 Dose: 4 mg Ondansetron HCl (Zofran) 4 mg IV Q6H PRN PRN Reason: Nausea And Vomiting Stop: 05/13/18 01:07 Last Admin: 04/13/18 10:01 Dose: 4 mg Polyethylene Glycol (Miralax Powder Packet) 17 gm PO DAILY [facility] Stop: 05/16/18 08:59 Last Admin: 04/16/18 11:52 Dose: 17 gm Ticagrelor (Brilinta) 90 mg PO BID [facility] Stop: 05/13/18 08:59 Last Admin: 04/16/18 10:02 Dose: 90 mg Resident Activity Tracking Resident Involvement: Resident Care Provided Care Provided: Adult Hospital Medicine
[2018-04-16] MEDS ORDERED: POLYETHYLENE (MIRALAX) 17 GM PACK PO SCH (09:00)
[2018-04-16] MEDS ORDERED: ALBUMIN 25% 50 ML IV SCH (09:15)
[2018-04-16] MEDS: METOPROLOL TARTRATE 25 MG TAB PO SCH ×2 (09:22→20:51)
[2018-04-16] MEDS: LISINOPRIL 5 MG TAB PO SCH (09:22)
[2018-04-16] MEDS: HEPARIN SOD 5,000 UNIT/0.5 ML VIAL SQ SCH ×2 (09:49→20:52)
[2018-04-16] MEDS: ATORVASTATIN 40 MG TAB PO SCH (09:49)
[2018-04-16] MEDS: ASPIRIN 81 MG ECTAB PO SCH (09:49)
[2018-04-16] MEDS: TICAGRELOR 90 MG TAB PO SCH ×2 (10:02→20:54)
[2018-04-16] MEDS ORDERED: FUROSEMIDE 20 MG in SYRINGE 0 ML IV ONE ×2 (10:30→17:30)
[2018-04-16] MEDS ORDERED: MIDAZOLAM HCL 1 MG/ML 2ML VIAL ONE (10:39)
[2018-04-16] MEDS ORDERED: fentaNYL citrate 100 MCG/2 ML VIAL ONE (10:40)
--- NOTE | 2018-04-16 11:07 | Family Medicine Progress Note ---
Date of Service April 16, 2018 Assessment & Plan (1) ST elevation [place] (STEMI): 47-year-old male with no significant past medical history is being managed in the ICU following STEMI, status post stent placement in the LAD. Patient is being managed for persistent hypotension following cardiac catheterization. Left anterior descending OR. Persistent hypotension status post stent placement Status post 2 GUILLAUME placed in LAD Patient has had persistent hypotensionDr. Kaur is following and is cathing the patient this morning with plan to place a [place] catheter Continue post OR regimenaspirin 81 mg every morning, Lipitor 80 every morning , lisinopril 5 mg every morning, aspirin and Brilinta 90 twice daily, Lopressor 25 p.o. twice daily Pulmonary edema with Low EF - Sec to cardiac dysfunction. - Right heart cath reassuring, no evidence of low output state - continue diuresis - Received 20mgs IV lasix in am. additional 20mgs IV lasix in the afternoon - Diuresing well. Monitor I and Os Hypotension Continue to hold antihypertensives DAR Improved today Transaminitis Improved today FEN No fluids at this time, diuresing the patient, n.p.o. in anticipation for cath DVT prophylaxis Heparin 5000 units subcu every 12 (2) Hypotension: (3) CAD (coronary artery disease): (4) S/P drug eluting coronary stent placement: (5) S/P PTCA (percutaneous transluminal coronary angioplasty): (6) ST elevation myocardial infarction (STEMI) of anterior wall, initial episode of care: (7) Admitted to intensive care unit: (8) ST elevation [place] (STEMI): Supervising Physician Co-Signing Physician Notes Resident Physician Supervision Note: I independently interviewed and examined the patient and verified the valencia history and physical, reviewed labs and image studies, discussed the case with the resident Dr. Brown and agree with the findings and care plan. Subjective 47-year-old male with no significant past medical history is being managed in the ICU following STEMI, status post stent placement in the LAD. The patient this morning is resting in bedhe states that he has been at times short of breath, but his breathing has improved since admission and has no longer needed BiPAP. He denies any chest pain, lower extremity swelling. He states that he got up to go to the bathroom at the bedside and did not experience any dyspnea or chest pain. Constitutional: no fever, no chills and no sweats Respiratory: as per Subjective / HPI; no cough Cardiovascular: no chest pain, no chest pain with activity, no radiating jaw, neck or arm pain, no dyspnea on exertion, no palpitations and no edema Gastrointestinal: no abdominal pain, no nausea and no vomiting Physical Exam 2 Vital Signs (Past 24 Hours): Last Vital Signs Temp 36.9 C 04/16/18 08:00 Pulse 79 04/16/18 10:00 Resp 29 H 04/16/18 10:00 BP 100/68 04/16/18 10:00 Pulse Ox 93 04/16/18 10:00 Physical Exam: General; no acute distress, normocephalic/atraumatic HEENT; supple, nontender, no LAD of the cervical or supraclavicular nodes Cardio; regular rate and rhythm, normal S1-S2, no murmurs/rubs/gallops Pulmonary; no respiratory distress, clear to auscultation bilaterally, no wheezing/rales/rhonchi Abdomen; normal bowel sounds, soft nontender, nondistended MSK; no cyanosis or clubbing, no calf tenderness Psych/neuro; cranial nerves grossly intact, answering questions appropriately, alert and oriented x3, normal mood/affect Results & Data Laboratory Results Laboratory Last Values WBC 11.20 K/uL (4.8-10.8) H 04/16/18 04:38 RBC 3.88 M/uL (4.7-6.1) L 04/16/18 04:38 Hgb 12.2 g/dL (14.0-18.0) L 04/16/18 04:38 POC Hgb 14.6 g/dl (14.0-18.0) 04/12/18 23:07 Hct 35.0 % (42-52) L 04/16/18 04:38 POC Hct 43 % (42-52) 04/12/18 23:07 MCV 90.2 fL (80-100) 04/16/18 04:38 MCH 31.4 pg (25-34) 04/16/18 04:38 MCHC 34.9 g/dL (32-36) 04/16/18 04:38 RDW Std Deviation 41.9 fL (36.4-46.3) 04/16/18 04:38 RDW Coeff of Val 12.9 % (11.5-14.5) 04/16/18 04:38 Plt Count 281 K/uL (130-400) 04/16/18 04:38 MPV 9.2 fL (7.4-10.4) 04/16/18 04:38 Immature Gran % (Auto) 0.3 % 04/16/18 04:38 Neut % (Auto) 80.3 % 04/16/18 04:38 Lymph % (Auto) 7.9 % 04/16/18 04:38 [place] % (Auto) 11.2 % 04/16/18 04:38 Eos % (Auto) 0.3 % 04/16/18 04:38 Baso % (Auto) 0.0 % 04/16/18 04:38 Immature Gran # (Auto) 0.03 K/uL (0.00-0.02) H 04/16/18 04:38 Neut # (Auto) 9.00 K/uL (1.4-6.5) H 04/16/18 04:38 Lymph # (Auto) 0.89 K/uL (1.2-3.4) L 04/16/18 04:38 [place] # (Auto) 1.25 K/uL (0.11-0.59) H 04/16/18 04:38 Eos # (Auto) 0.03 K/uL (0-0.5) 04/16/18 04:38 Baso # (Auto) 0.00 K/uL (0-0.2) 04/16/18 04:38 RBC Morphology Unremarkable 04/13/18 04:05 PT 11.8 Seconds (9.0-12.0) 04/15/18 19:51 INR 1.2 (0.9-1.1) H 04/15/18 19:51 APTT 30.1 Seconds (21.0-31.0) 04/15/18 19:51 PTT Ratio 1.2 04/15/18 19:51 Activ Coag Time Kaolin 252 SECONDS (94-140) H 04/13/18 00:06 POC Sodium 140 mEq/L (135-144) 04/12/18 23:07 Sodium 136 mmol/L (136-145) 04/16/18 04:38 POC Potassium 3.5 mEq/L (3.3-5.0) 04/12/18 23:07 Potassium 3.5 mmol/L (3.5-5.1) 04/16/18 04:38 POC Chloride 101 mEq/L (101-112) 04/12/18 23:07 Chloride 106 mmol/L (98-107) 04/16/18 04:38 Carbon Dioxide 25 mmol/L (21-32) 04/16/18 04:38 POC Total CO2 26 mEq/l (24-31) 04/12/18 23:07 Anion Gap 5.0 (3-11) 04/16/18 04:38 POC Anion Gap 17.0 mmol/L (16-25) 04/12/18 23:07 POC BUN 15 mg/dl (7-18) 04/12/18 23:07 BUN 17 mg/dl (7-18) 04/16/18 04:38 Creatinine 1.14 mg/dl (0.6-1.4) D 04/16/18 04:38 POC Creatinine 1.1 mg/dl (0.6-1.3) 04/12/18 23:07 Est Cr Clr Drug Dosing 73.3 ml/min 04/16/18 04:38 Est GFR ( Amer) 87.0 04/16/18 04:38 Est GFR (Non-Af Amer) 75.1 04/16/18 04:38 BUN/Creatinine Ratio 14.7 (10-20) 04/16/18 04:38 Glucose 99 mg/dl (70-99) 04/16/18 04:38 POC Glucose 97 (70-99) 04/15/18 11:18 POC Glucose (other) 129 mg/dl (70-99) H 04/12/18 23:07 Estimat Average Glucose 97 mg/dl 04/13/18 04:05 Hemoglobin A1c 5.0 % (4.5-5.6) 04/13/18 04:05 Lactate 2.0 mmol/L (0.4-2.0) 04/15/18 06:51 Calcium 7.6 mg/dl (8.5-10.1) L 04/16/18 04:38 POC Ioniz Calcium Thu 1.07 mmol/l (1.12-1.32) L 04/12/18 23:07 Phosphorus 2.8 mg/dl (2.5-4.9) 04/16/18 04:38 Magnesium 2.0 mg/dl (1.8-2.4) 04/16/18 04:38 Total Bilirubin 1.5 mg/dl (0.2-1) H 04/16/18 04:38 Direct Bilirubin 0.4 mg/dl (0-0.2) H 04/16/18 04:38 AST 131 U/L (15-37) H 04/16/18 04:38 ALT 66 U/L (12-78) 04/16/18 04:38 Alkaline Phosphatase 85 U/L (45-117) 04/16/18 04:38 Total Creatine Kinase 320 U/L (39-308) H 04/12/18 22:59 CK-MB (CK-2) 10.0 ng/ml (0.5-3.6) H 04/12/18 22:59 CK/CKMB % Calc 3.1 (0-3.0) H 04/12/18 22:59 POC Troponin I 0.99 ng/ml (0-0.045) H 04/12/18 23:04 Troponin I 65.700 ng/ml (0-0.045) H* 04/15/18 04:13 Total Protein 5.9 gm/dl (6.4-8.2) L 04/16/18 04:38 Albumin 2.5 gm/dl (3.4-5.0) L 04/16/18 04:38 Globulin 3.4 gm/dl (2.5-4.0) 04/15/18 04:13 Albumin/Globulin Ratio 0.8 (0.9-2) L 04/15/18 04:13 Triglycerides 80 mg/dl (0-150) 04/13/18 04:05 Cholesterol 198 mg/dl (0-200) 04/13/18 04:05 LDL Cholesterol, Calc 143 mg/dl 04/13/18 04:05 VLDL Cholesterol, Calc 16 mg/dl 04/13/18 04:05 HDL Cholesterol 39 mg/dl 04/13/18 04:05 Cholesterol/HDL Ratio 5 04/13/18 04:05 Lipase 101 U/L (73-393) 04/12/18 22:59 Procalcitonin 0.14 ng/ml (0-0.5) 04/16/18 04:38 TSH 1.170 uIu/ml (0.300-4.500) 04/12/18 22:59 Random Cortisol 19.04 mcg/dl 04/16/18 04:38 Specimen Hemolysis 04/12/18 22:59 Urine Color Yellow 04/15/18 00:00 Urine Appearance Clear (Clear) 04/15/18 00:00 Urine pH 5.0 (4.5-7.5) 04/15/18 00:00 Ur Specific [place] 1.029 (1.000-1.030) 04/15/18 00:00 Urine Protein Negative (Negative) 04/15/18 00:00 Urine Glucose (UA) Negative (Negative) 04/15/18 00:00 Urine Ketones 1+ (Negative) H 04/15/18 00:00 Urine Blood Negative (Negative) 04/15/18 00:00 Urine Nitrite Negative (Negative) 04/15/18 00:00 Urine Bilirubin Negative (Negative) 04/15/18 00:00 Urine Urobilinogen Negative (Negative) 04/15/18 00:00 Ur Leukocyte Esterase Negative (Negative) 04/15/18 00:00 Nasal Screen MRSA (PCR) Negative (Negative) 04/13/18 Unknown Influenza Type A (PCR) Neg for Influ A (Neg) 04/15/18 09:20 Influenza Type B (PCR) Neg for Influ B (Neg) 04/15/18 09:20 Blood Type O Positive 04/12/18 22:59 Antibody Screen NEGATIVE 04/12/18 22:59 _ (1) ST elevation [place] (STEMI) Involved coronary artery: LAD coronary artery Qualified Code(s): I21.02 - ST elevation (STEMI) myocardial infarction involving left anterior descending coronary artery
--- NOTE | 2018-04-16 11:20 | Pre Anesthesia Assessment ---
Date of Service April 16, 2018 Pre Sedation Assessment Vital Signs Temp Pulse Pulse Resp BP BP Pulse Ox 04/16/18 10:00 79 29 H 100/68 93 04/16/18 09:29 74 31 H 92/68 L 93 04/16/18 09:14 73 29 H 73/41 L 94 04/16/18 09:00 77 32 H 96/64 L 93 04/16/18 08:00 36.9 C 79 21 94/65 L 95 04/16/18 07:00 75 27 H 91/65 L 95 04/16/18 06:00 83 27 H 84/52 L 94 04/16/18 05:01 37.1 C 84 28 H 95 04/16/18 05:00 81 27 H 99/60 L 95 04/16/18 04:01 92 H 22 97 04/16/18 04:00 76 21 85/56 L 96 04/16/18 03:01 86 24 95 04/16/18 03:00 77 25 H 89/53 L 95 04/16/18 02:01 94 H 27 H 94 04/16/18 02:00 89 29 H 82/51 L 95 04/16/18 01:01 86 23 96 04/16/18 01:00 88 25 H 92/57 L 96 04/16/18 00:01 87 25 H 95 04/16/18 00:00 84 25 H 96/61 L 96 04/15/18 23:01 92 H 28 H 94 04/15/18 23:00 92 H 26 H 94/55 L 96 04/15/18 22:00 82 23 92/62 L 96 04/15/18 21:01 89 35 H 88 L 04/15/18 21:00 89 31 H 104/60 90 04/15/18 20:00 36.8 C 85 91 H 21 96/66 L 92/62 L 89 L 04/15/18 19:33 92 H 18 102/66 91 04/15/18 19:01 84 23 95 04/15/18 19:00 80 24 100/67 95 04/15/18 18:00 86 31 H 102/63 88 L 04/15/18 17:00 71 22 86/55 L 91 04/15/18 16:00 75 24 86/56 L 98 04/15/18 15:00 79 24 90/60 L 97 04/15/18 14:00 72 27 H 92/62 L 97 04/15/18 13:50 75 26 H 96 04/15/18 13:00 84 27 H 89/59 L 88 L 04/15/18 12:00 83 35 H 92/65 L 91 Cardiovascular RRR, no murmur, no edema Respiratory + crackles Pre-Sedation Airway Assessment Smoking Status: Never smoker Hx Sleep Apnea: No Hx Difficult Intubation: No Short, Thick Neck: No Thyromental Distance: > or= 3.5 Finger Breadths Mallampati Class: III Procedure Planning Contraindications for Sedation: none Current Medications Reviewed: Yes Notes The planned sedation has been discussed with the patient. Informed Consent was obtained. I have identified the patient, determined the appropriateness of sedation and have assessed the patient immediately prior to the procedure. All medicine(s) and interventions are by my order.
--- NOTE | 2018-04-16 11:20 | Post Anesthesia Assessment ---
Date of Service April 16, 2018 Post Sedation Assessment Vital Signs Temp Pulse Pulse Resp BP BP Pulse Ox 04/16/18 10:00 79 29 H 100/68 93 04/16/18 09:29 74 31 H 92/68 L 93 04/16/18 09:14 73 29 H 73/41 L 94 04/16/18 09:00 77 32 H 96/64 L 93 04/16/18 08:00 36.9 C 79 21 94/65 L 95 04/16/18 07:00 75 27 H 91/65 L 95 04/16/18 06:00 83 27 H 84/52 L 94 04/16/18 05:01 37.1 C 84 28 H 95 04/16/18 05:00 81 27 H 99/60 L 95 04/16/18 04:01 92 H 22 97 04/16/18 04:00 76 21 85/56 L 96 04/16/18 03:01 86 24 95 04/16/18 03:00 77 25 H 89/53 L 95 04/16/18 02:01 94 H 27 H 94 04/16/18 02:00 89 29 H 82/51 L 95 04/16/18 01:01 86 23 96 04/16/18 01:00 88 25 H 92/57 L 96 04/16/18 00:01 87 25 H 95 04/16/18 00:00 84 25 H 96/61 L 96 04/15/18 23:01 92 H 28 H 94 04/15/18 23:00 92 H 26 H 94/55 L 96 04/15/18 22:00 82 23 92/62 L 96 04/15/18 21:01 89 35 H 88 L 04/15/18 21:00 89 31 H 104/60 90 04/15/18 20:00 36.8 C 85 91 H 21 96/66 L 92/62 L 89 L 04/15/18 19:33 92 H 18 102/66 91 04/15/18 19:01 84 23 95 04/15/18 19:00 80 24 100/67 95 04/15/18 18:00 86 31 H 102/63 88 L 04/15/18 17:00 71 22 86/55 L 91 04/15/18 16:00 75 24 86/56 L 98 04/15/18 15:00 79 24 90/60 L 97 04/15/18 14:00 72 27 H 92/62 L 97 04/15/18 13:50 75 26 H 96 04/15/18 13:00 84 27 H 89/59 L 88 L 04/15/18 12:00 83 35 H 92/65 L 91 Recovery Score Activity: Moves 4 extremities Respiration: Deep Breath/Cough Circulation: +/-20% PreAnes Value Consciousness: Fully Awake Oxygen Saturation: O2 needed for >90% Discharge Sedation Level of Care: Fast Track Phase II Post Sedation Plan On clinical assessment, the patient appears to have tolerated the sedation without complications. Patient is recovering as anticipated. Patient will continue to be monitored by nursing and may be discharged when sedation discharge criteria are met per below protocol. Upon Completions of procedure and additional 15 minutes continue every 5 minute vital signs and the P.A.R. score; then discharge to a Phase I or Fast Track to Phase II per the following guidelines: * Discharge Patient to appropriate Phase II area if PAR is 8 or greater or return to pre- procedure baseline. The post - procedure orders will be as directed. * If PAR score is less than 8 or not return to pre-procedure baseline then patient will follow Phase I monitoring till PAR is reached for Phase II. The Phase I may be done in procedure room or may call to secure a Phase I area. * If naloxone or flumazenil are used for reversal, hold in Phase I for continued monitoring from when last reversal dose was given for a minimum of 60 minutes or longer pending the nurse and/or physician discretion of patient condition before discharge to Phase II. Please call the Sedation Physician to re-evaluate and complete post-note for discharge to Phase II area. Do NOT discharge from procedure sedation or Phase 1 until post- sedation evaluation note is complete by procedure /sedation MD Sedation Discharge Instructions to be given to the patient at discharge to home.
--- NOTE | 2018-04-16 11:29 | Cardiac Catheterization ---
Cardiac Cath Procedure Full Procedure Date April 16, 2018 Pre-Procedure Diagnosis Pre-Procedure Diagnosis: STEMI AUC Score AUC Score: 9 Post-Procedure Diagnosis Post-Procedure Diagnosis: Normal LV Systolic Function and Elevated Intracardiac Pressures Procedure(s) Performed Procedure(s) Performed: Right Heart Cath and Ultrasound Guided Vascular Access Surgical Instrument Maker Pineda Kaur MD Forest Resource Specialist(s) Kyle Estimated Blood Loss Estimated Blood Loss: 5 Medication(s) Medication(s): Fentanyl Summary of Findings RIGHT HEART CATHETERIZATION RA 3 RV 47/3 PA 47/12/27 PAWP 18 PaSat 62% AoSat 94%via pulse ox on 2 L O2 nasal cannula Diaz CO/CI 4.5/2.4 Thermo CO/CI 5.1/2.7 TPG 9 mmHg PVR < 2 wood unit Systemic vascular resistance index - 2133 dynes Summary: 1. Normal cardiac output/index 2. Mildly elevated left sided filling pressures 3. Borderline post-capillary pulmonary hypertension 4. 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
[2018-04-16 12:51] LABS: iSTAT Venous Carbon Dioxide 22 mEq/l (24-31)
[2018-04-16 13:31] LABS: Amphetamines+Metham, Urine Neg (Neg); Barbiturates, Urine Neg (Neg); Benzodiazepine, Urine Neg (Neg); Cocaine, Urine Neg (Neg); MDMA (Ecstacy), Urine Neg (Neg); Methadone, Urine Neg (Neg); Opiate, Urine Neg (Neg); Phencyclidine, Urine Neg (Neg)
--- NOTE | 2018-04-16 16:23 | Cardiology Progress Note ---
Date of Service April 16, 2018 Assessment & Plan (1) ST elevation NE (STEMI): 2. Respiratory failure requiring bipap - question PNA vs pulmonary edema 3. Hypotension/shock 4. DAR 5. Transaminitis 6. Ischemic cardiomyopathy, EF 35-40% Patient with congestion on exam/chest x-ray this morning, still appears well- perfused with improved renal function/transaminitis Leukocytosis improved, afebrile Right heart cath reassuring, no evidence of low output state Recommend continued diuresis today. Additional 20 IV Lasix this afternoon Continue dual antiplatelet therapy with aspirin, ticagrelor. Continue high intensity statin Continue to hold antihypertensives Subjective Patient off BiPAP this morning, stable O2 sats on nasal cannula. Borderline blood pressure stable. No recurrent chest pain. Telemetry reviewno events. Minimal urine output overnight, positive 3500 over the course last 24 hours Chest x-ray with bilateral pulmonary edema Renal function improved, creatinine from 1.4 down to 1.1 Underwent right heart catheterization todaymildly elevated left-sided filling pressure, normal right-sided filling pressures. Mild pulmonary hypertension. PA sat 62, normal cardiac output Review of Systems 10 point review of systems was completed and was otherwise negative unless stated in HPI Physical Exam 2 Vital Signs (Past 24 Hours): Last Vital Signs Temp 36.9 C 04/16/18 08:00 Pulse 84 04/16/18 13:00 Resp 21 04/16/18 12:00 BP 107/70 04/16/18 13:00 Pulse Ox 91 04/16/18 13:00 Physical Exam: General: Comfortable, still appears mildly ill, lethargic Eyes: Sclerae anicteric, extraocular movements intact HENT: Oropharynx clear mucous membranes moist Neck: Normal carotid upstrokes, no bruits. No JVD. Lungs: Decreased breath sounds at bases bilaterally, crackles on right at base Cardiac: Regular rate and rhythm, no murmurs, rubs or gallops. Vascular: Right radial artery access site with no ecchymosis, hematoma. Distal pulse and sensation intact. Abdomen: Soft, nontender, nondistended, positive bowel sounds. Extremities: Well perfused, no peripheral edema Skin: No rashes or lesions. Neuro: Nonfocal Psych: Alert orient x3, normal affect and mood
[2018-04-16] MEDS: AMOXICILLIN/CLAVULANATE 875 MG TAB PO SCH (17:40)
[2018-04-17 04:39] LABS: Basophils # (auto) 0.02 K/uL (0-0.2); Basophils % (auto) 0.2 %; Eosinophils # (auto) 0.19 K/uL (0-0.5); Hematocrit (blood only) 36.8 % (42-52); Immature Granulocytes # (auto) 0.03 K/uL (0.00-0.02); Immature Granulocytes % (auto) 0.3 %; Lymphocytes # (auto) 0.89 K/uL (1.2-3.4); Lymphocytes % (auto) 9.4 %; Mean Corpuscular Hgb Conc 35.3 g/dL (32-36); Mean Corpuscular Volume 89.8 fL (80-100); Mean Platelet Volume 9.1 fL (7.4-10.4); Monocytes # (auto) 1.44 K/uL (0.11-0.59); Monocytes % (auto) 15.2 %; Neutrophils % (auto) 72.9 %; Platelet Count 338 K/uL (130-400); RDW Coefficient of Variation 12.8 % (11.5-14.5); RDW Standard Deviation 41.3 fL (36.4-46.3); White Blood Count 9.47 K/uL (4.8-10.8)
[2018-04-17 05:01] LABS: BUN Creatinine Ratio 15.9 (10-20); Creatinine Clr Calc Pharmacy 78.1 ml/min; Est GFR (Non-African American) 81.1; Magnesium 2.2 mg/dl (1.8-2.4); Potassium 3.2 mmol/L (3.5-5.1)
[2018-04-17] MEDS ORDERED: POTASSIUM CHLORIDE 20 MEQ TABCR PO STA (05:05)
[2018-04-17] MEDS: POTASSIUM CHLORIDE / WTR 10 MEQ/100 ML PLCT IV SCH ×2 (05:21→06:21)
--- NOTE | 2018-04-17 07:20 | XRay Report ---
XR chest 1V portable CLINICAL HISTORY: Pulmonary edema COMPARISON STUDY: 04/16/2018 FINDINGS: The heart remains enlarged. There is improving pulmonary vascular congestion. There are per sistent bilateral pleural effusions with associated by basilar opacities likely representing compress fercho atelectasis.[ IMPRESSION: Improving pulmonary vascular congestion. Persistent bilateral pleural effusions with asso ciated basilar opacities Electronically signed by: Jayden Patel M.D. 04/17/2018 7:19 AM
[2018-04-17] MEDS: AMOXICILLIN/CLAVULANATE 875 MG TAB PO SCH ×3 (08:46→17:19)
--- NOTE | 2018-04-17 09:10 | Critical Care Progress Note ---
Date of Service April 17, 2018 Assessment & Plan (1) Hypotension: (2) Pneumonia: (3) ST elevation [place] (STEMI): 47-year-old male with acute anterior STEMI status post PTCA with GUILLAUME x2 to the LAD. HD improving and on RA now with improving pulm vascular congestion. NEURO: CAM ICU: NEGATIVE Pain: Tylenol and Morphine PRN CARDIAC/VASCULAR: Hemodynamically improving Initially hypotension in the setting of acute anterior STEMI s/p PTCA w/ GUILLAUME x2 to the LAD R heart cath/[place] cath 04/16/18: normal cardiac output, mildly elevated L- sided filing pressures and borderline post capillary pulmonary hypertension, normal systolic vascular resistance EK NSR with lateral infarct chnages and QTc 408 ECHO: EF 35-40%, moderate concentric LVH, no thrombus, LAD distribution wall motion abnormality, nl RV systolic function, trace MV regurg, trivial pericardial effusion CXR: Improving pulmonary vascular congestion. Persistent bilateral pleural effusions with associated basilar opacities Cardiology on board - recommending gentle diuresis (given lasix 20mg IV x 3) Continue aspirin, lipitor, lisinopril, Brilinta and metoprolol RESPIRATORY: Improving hypoxia s/p diuresis. Now on RA Initialy hypoxia s/p STEMI with pulmonary edema CXR: Improving pulmonary vascular congestion. Persistent bilateral pleural effusions with associated basilar opacities Continue supplemental O2 Diuresis - Given Lasix 20mg IV x 3 with adequate diuresis GI/NUTRITION: Mildly elevated LFT likely in the setting of STEMI - improving Diet: AHA RENAL/LYTES: Mild DAR - resolved s/p IVF Off IVF Hypokalemia K 3.2: received KCL 80meq PO and 20meq IV : No concerns at this time. ENDO: No h/o DM or Thyroid Dz. HEME: Improving H&H Continue to monitor CBC ID: Possible aspiration pneumonitis Procal 0.14 On Augmentin x 7 days LINES/IV ACCESS: PIVs x2 DVT PROPHYLAXIS: Heparin 5000 SQ Q12H Code: Full Dispo: To telemetry Supervising Physician Co-Signing Physician Notes Dr. Coyne was resident physician during care of patient. I separately evaluated patient for valencia portions of the history and the exam. I was present during the critical portion of medical decision making, and I discussed the case with the resident. I generally agree with the findings and plan. Improved hemodynamics dynamics. Continued diuresis, ambulate today. 7 days of total effective therapy of antibiotics Stable for downgrade to telemetry status Subjective This AM pt was resting comfortably in bed and sating well on RA. Hemodynamically improving. Improving sob, weakness and appetite per patient. He denies any SHAW/dizziness, chest pain, sob, nausea, vomiting, abdominal pain, fevers or chills. Reported multiple loose BMs s/p bowel regimen and antibiotics. Respiratory: as per Subjective / HPI Physical Exam 2 Vital Signs (Past 24 Hours): Last Vital Signs Temp 36.8 C 04/17/18 08:00 Pulse 71 04/17/18 08:00 Resp 21 04/17/18 08:00 BP 102/72 04/17/18 08:00 Pulse Ox 100 04/17/18 08:00 Physical Exam: General: In NAD CV: RRR, no m/r/g Pulm: CTAB, equal breath sounds bilaterally Abdomen: +BS, non-distended, nontender to palpation in all quadrants LE: no calf tenderness or LE edema bilaterally Neuro: Alert and oriented x 4 Results & Data Laboratory Results Abnormal lab results 04/16/18 04/17/18 04/17/18 Range/Units 11:03 04:26 04:26 RBC 4.10 L (4.7-6.1) M/uL Hgb 13.0 L (14.0-18.0) g/dL Hct 36.8 L (42-52) % Immature Gran # (Auto) 0.03 H (0.00-0.02) K/uL Neut # (Auto) 6.90 H (1.4-6.5) K/uL Lymph # (Auto) 0.89 L (1.2-3.4) K/uL [place] # (Auto) 1.44 H (0.11-0.59) K/uL POC VBG pH 7.44 H (7.36-7.41) POC VBG pCO2 31 L (38-50) mmHg POC VBG HCO3 21 L (23-28) meq/L POC VBG Total CO2 22 L (24-31) mEq/l POC Venous O2 Sat 62.0 L (70-80) % Potassium 3.2 L (3.5-5.1) mmol/L Calcium 8.0 L (8.5-10.1) mg/dl AST (15-37) U/L Total Protein (6.4-8.2) gm/dl Albumin (3.4-5.0) gm/dl 04/17/18 Range/Units 04:26 RBC (4.7-6.1) M/uL Hgb (14.0-18.0) g/dL Hct (42-52) % Immature Gran # (Auto) (0.00-0.02) K/uL Neut # (Auto) (1.4-6.5) K/uL Lymph # (Auto) (1.2-3.4) K/uL [place] # (Auto) (0.11-0.59) K/uL POC VBG pH (7.36-7.41) POC VBG pCO2 (38-50) mmHg POC VBG HCO3 (23-28) meq/L POC VBG Total CO2 (24-31) mEq/l POC Venous O2 Sat (70-80) % Potassium (3.5-5.1) mmol/L Calcium (8.5-10.1) mg/dl AST 84 H (15-37) U/L Total Protein 6.3 L (6.4-8.2) gm/dl Albumin 2.5 L (3.4-5.0) gm/dl Diagnostic Findings XR chest 1V portable CLINICAL HISTORY: Pulmonary edema COMPARISON STUDY: 04/16/2018 FINDINGS: The heart remains enlarged. There is improving pulmonary vascular congestion. There are persistent bilateral pleural effusions with associated by basilar opacities likely representing compressive atelectasis.[ IMPRESSION: Improving pulmonary vascular congestion. Persistent bilateral pleural effusions with associated basilar opacities Medications Administered Current Inpatient Medications Acetaminophen (Tylenol) 650 mg PO Q4H PRN PRN Reason: Mild Pain (scale 1-3) Stop: 05/13/18 01:09 Last Admin: 04/15/18 13:24 Dose: 650 mg Amoxicillin/Clavulanate Potassium (Augmentin 875mg) 1 tab PO BIDM [facility] Stop: 04/22/18 08:29 Last Admin: 04/17/18 09:17 Dose: 1 tab Aspirin (Ecotrin Ectab) 81 mg PO [facility] Stop: 05/13/18 08:59 Last Admin: 04/17/18 09:17 Dose: 81 mg Atorvastatin Calcium (Lipitor) 80 mg PO [facility] Stop: 05/13/18 08:59 Last Admin: 04/17/18 09:17 Dose: 80 mg Heparin Sodium (Porcine) (Heparin Sodium (Porcine)) 5,000 units SQ Q12 [facility] Stop: 05/15/18 20:59 Last Admin: 04/17/18 09:17 Dose: 5,000 units Lisinopril (Zestril) 5 mg PO QAM [facility] Stop: 05/13/18 08:59 Last Admin: 04/17/18 10:41 Dose: Not Given Metoprolol Tartrate (Lopressor) 25 mg PO BID [facility] Stop: 05/13/18 20:59 Last Admin: 04/17/18 09:17 Dose: 25 mg Morphine Sulfate (Morphine Sulfate) 2 mg IV Q2H PRN PRN Reason: moderate to severe pain Stop: 04/27/18 01:09 Last Admin: 04/13/18 02:02 Dose: 4 mg Ondansetron HCl (Zofran) 4 mg IV Q6H PRN PRN Reason: Nausea And Vomiting Stop: 05/13/18 01:07 Last Admin: 04/13/18 10:01 Dose: 4 mg Potassium Chloride (Klor-Con M20) 40 meq PO TODAY@1500 ONE Stop: 04/17/18 15:01 Ticagrelor (Brilinta) 90 mg PO BID [facility] Stop: 05/13/18 08:59 Last Admin: 04/17/18 11:25 Dose: 90 mg Resident Activity Tracking Resident Involvement: Resident Care Provided Care Provided: Adult Hospital Medicine
[2018-04-17] MEDS: HEPARIN SOD 5,000 UNIT/0.5 ML VIAL SQ SCH ×2 (09:17→20:20)
[2018-04-17] MEDS: ASPIRIN 81 MG ECTAB PO SCH (09:17)
[2018-04-17] MEDS: ATORVASTATIN 40 MG TAB PO SCH (09:17)
[2018-04-17] MEDS: METOPROLOL TARTRATE 25 MG TAB PO SCH ×2 (09:17→20:19)
[2018-04-17] MEDS ORDERED: FUROSEMIDE 20 MG in SYRINGE 0 ML IV ONE (09:30)
[2018-04-17 10:34] LABS: Albumin Level 2.5 gm/dl (3.4-5.0); Bilirubin Direct 0.2 mg/dl (0-0.2); Bilirubin,Total 0.8 mg/dl (0.2-1); Total Protein 6.3 gm/dl (6.4-8.2)
[2018-04-17] MEDS: LISINOPRIL 5 MG TAB PO SCH (10:41)
[2018-04-17] MEDS: TICAGRELOR 90 MG TAB PO SCH ×2 (11:25→20:19)
--- NOTE | 2018-04-17 11:58 | Family Medicine Progress Note ---
Date of Service April 17, 2018 Assessment & Plan (1) Hypotension: (1) ST elevation [place] (STEMI): 47-year-old male with no significant past medical history is being managed in the ICU following STEMI, status post stent placement in the LAD. Patient is being managed for persistent hypotension following cardiac catheterization. Left anterior descending AL. Persistent hypotension status post stent placement Status post 2 GUILLAUME placed in LAD Patient has had persistent hypotensionSwans Tita catheter in place Continue post AL regimenaspirin 81 mg every morning, Lipitor 80 every morning , aspirin and Brilinta 90 twice daily Currently holding antihypertensives Cardiogenic shock . - in setting of acute AL - Right heart cath reassuring, no evidence of low output state - continue diuresis - Received 20mgs IV lasix again in am. - Diuresing well. Monitor I and Os 1.4 liters 24 hourschest x-ray this morning shows improved pulmonary congestion Hypotension Continue to hold antihypertensives DAR Resolved Transaminitis Continues to improve FEN Heart healthy diet DVT prophylaxis Heparin 5000 units subcu every 12 (2) ST elevation [place] (STEMI): (3) CAD (coronary artery disease): (4) S/P drug eluting coronary stent placement: (5) S/P PTCA (percutaneous transluminal coronary angioplasty): Supervising Physician Co-Signing Physician Notes Resident Physician Supervision Note: I independently interviewed and examined the patient and verified the valencia history and physical, reviewed labs and image studies, discussed the case with the resident Dr. Brown and agree with the findings and care plan. Subjective 47-year-old male with no significant past medical history is being managed in the ICU following STEMI, status post stent placement in the LAD. The patient this morning is resting in bedhe states that he has been at times short of breath, but his breathing has improved since admission and has no longer needed BiPAP. He denies any chest pain, lower extremity swelling. He states that he got up to go to the bathroom at the bedside and did not experience any dyspnea or chest pain. He does report some loose stools on antibiotics. Review of systems Constitutional: no fever, no chills and no sweats Respiratory: as per Subjective / HPI; no cough Cardiovascular: no chest pain, no chest pain with activity, no radiating jaw, neck or arm pain, no dyspnea on exertion, no palpitations and no edema Gastrointestinal: no abdominal pain, no nausea and no vomiting Physical Exam 2 Vital Signs (Past 24 Hours): Last Vital Signs Temp 36.8 C 04/17/18 08:00 Pulse 71 04/17/18 08:00 Resp 21 04/17/18 08:00 BP 102/72 04/17/18 08:00 Pulse Ox 100 04/17/18 08:00 Physical Exam: General; no acute distress, normocephalic/atraumatic HEENT; supple, nontender, no LAD of the cervical or supraclavicular nodes Cardio; regular rate and rhythm, normal S1-S2, no murmurs/rubs/gallops Pulmonary; no respiratory distress, clear to auscultation bilaterally, no wheezing/rales/rhonchi Abdomen; normal bowel sounds, soft nontender, nondistended MSK; no cyanosis or clubbing, no calf tenderness Psych/neuro; cranial nerves grossly intact, answering questions appropriately, alert and oriented x3, normal mood/affect Results & Data Laboratory Results Laboratory Last Values WBC 9.47 K/uL (4.8-10.8) 04/17/18 04:26 RBC 4.10 M/uL (4.7-6.1) L 04/17/18 04:26 Hgb 13.0 g/dL (14.0-18.0) L 04/17/18 04:26 POC Hgb 14.6 g/dl (14.0-18.0) 04/12/18 23:07 Hct 36.8 % (42-52) L 04/17/18 04:26 POC Hct 43 % (42-52) 04/12/18 23:07 MCV 89.8 fL (80-100) 04/17/18 04:26 MCH 31.7 pg (25-34) 04/17/18 04:26 MCHC 35.3 g/dL (32-36) 04/17/18 04:26 RDW Std Deviation 41.3 fL (36.4-46.3) 04/17/18 04:26 RDW Coeff of Val 12.8 % (11.5-14.5) 04/17/18 04:26 Plt Count 338 K/uL (130-400) 04/17/18 04:26 MPV 9.1 fL (7.4-10.4) 04/17/18 04:26 Immature Gran % (Auto) 0.3 % 04/17/18 04:26 Neut % (Auto) 72.9 % 04/17/18 04:26 Lymph % (Auto) 9.4 % 04/17/18 04:26 [place] % (Auto) 15.2 % 04/17/18 04:26 Eos % (Auto) 2.0 % 04/17/18 04:26 Baso % (Auto) 0.2 % 04/17/18 04:26 Immature Gran # (Auto) 0.03 K/uL (0.00-0.02) H 04/17/18 04:26 Neut # (Auto) 6.90 K/uL (1.4-6.5) H 04/17/18 04:26 Lymph # (Auto) 0.89 K/uL (1.2-3.4) L 04/17/18 04:26 [place] # (Auto) 1.44 K/uL (0.11-0.59) H 04/17/18 04:26 Eos # (Auto) 0.19 K/uL (0-0.5) 04/17/18 04:26 Baso # (Auto) 0.02 K/uL (0-0.2) 04/17/18 04:26 RBC Morphology Unremarkable 04/13/18 04:05 PT 11.8 Seconds (9.0-12.0) 04/15/18 19:51 INR 1.2 (0.9-1.1) H 04/15/18 19:51 APTT 30.1 Seconds (21.0-31.0) 04/15/18 19:51 PTT Ratio 1.2 04/15/18 19:51 Activ Coag Time Kaolin 252 SECONDS (94-140) H 04/13/18 00:06 POC VBG pH 7.44 (7.36-7.41) H 04/16/18 11:03 POC VBG pCO2 31 mmHg (38-50) L 04/16/18 11:03 POC VBG pO2 < 32 mmHg (30-55) 04/16/18 11:03 POC VBG HCO3 21 meq/L (23-28) L 04/16/18 11:03 POC VBG Total CO2 22 mEq/l (24-31) L 04/16/18 11:03 POC Venous O2 Sat 62.0 % (70-80) L 04/16/18 11:03 POC VBG Base Excess -3.0 meq/L 04/16/18 11:03 POC Sodium 140 mEq/L (135-144) 04/12/18 23:07 Sodium 136 mmol/L (136-145) 04/17/18 04:26 POC Potassium 3.5 mEq/L (3.3-5.0) 04/12/18 23:07 Potassium 3.2 mmol/L (3.5-5.1) L 04/17/18 04:26 POC Chloride 101 mEq/L (101-112) 04/12/18 23:07 Chloride 105 mmol/L (98-107) 04/17/18 04:26 Carbon Dioxide 26 mmol/L (21-32) 04/17/18 04:26 POC Total CO2 26 mEq/l (24-31) 04/12/18 23:07 Anion Gap 5.0 (3-11) 04/17/18 04:26 POC Anion Gap 17.0 mmol/L (16-25) 04/12/18 23:07 POC BUN 15 mg/dl (7-18) 04/12/18 23:07 BUN 17 mg/dl (7-18) 04/17/18 04:26 Creatinine 1.07 mg/dl (0.6-1.4) 04/17/18 04:26 POC Creatinine 1.1 mg/dl (0.6-1.3) 04/12/18 23:07 Est Cr Clr Drug Dosing 78.1 ml/min 04/17/18 04:26 Est GFR ( Amer) 94.0 04/17/18 04:26 Est GFR (Non-Af Amer) 81.1 04/17/18 04:26 BUN/Creatinine Ratio 15.9 (10-20) 04/17/18 04:26 Glucose 96 mg/dl (70-99) 04/17/18 04:26 POC Glucose 97 (70-99) 04/15/18 11:18 POC Glucose (other) 129 mg/dl (70-99) H 04/12/18 23:07 Estimat Average Glucose 97 mg/dl 04/13/18 04:05 Hemoglobin A1c 5.0 % (4.5-5.6) 04/13/18 04:05 Lactate 2.0 mmol/L (0.4-2.0) 04/15/18 06:51 Calcium 8.0 mg/dl (8.5-10.1) L 04/17/18 04:26 POC Ioniz Calcium Thu 1.07 mmol/l (1.12-1.32) L 04/12/18 23:07 Phosphorus 2.8 mg/dl (2.5-4.9) 04/16/18 04:38 Magnesium 2.2 mg/dl (1.8-2.4) 04/17/18 04:26 Total Bilirubin 0.8 mg/dl (0.2-1) D 04/17/18 04:26 Direct Bilirubin 0.2 mg/dl (0-0.2) 04/17/18 04:26 AST 84 U/L (15-37) H 04/17/18 04:26 ALT 57 U/L (12-78) 04/17/18 04:26 Alkaline Phosphatase 90 U/L (45-117) 04/17/18 04:26 Total Creatine Kinase 320 U/L (39-308) H 04/12/18 22:59 CK-MB (CK-2) 10.0 ng/ml (0.5-3.6) H 04/12/18 22:59 CK/CKMB % Calc 3.1 (0-3.0) H 04/12/18 22:59 POC Troponin I 0.99 ng/ml (0-0.045) H 04/12/18 23:04 Troponin I 65.700 ng/ml (0-0.045) H* 04/15/18 04:13 Total Protein 6.3 gm/dl (6.4-8.2) L 04/17/18 04:26 Albumin 2.5 gm/dl (3.4-5.0) L 04/17/18 04:26 Globulin 3.4 gm/dl (2.5-4.0) 04/15/18 04:13 Albumin/Globulin Ratio 0.8 (0.9-2) L 04/15/18 04:13 Triglycerides 80 mg/dl (0-150) 04/13/18 04:05 Cholesterol 198 mg/dl (0-200) 04/13/18 04:05 LDL Cholesterol, Calc 143 mg/dl 04/13/18 04:05 VLDL Cholesterol, Calc 16 mg/dl 04/13/18 04:05 HDL Cholesterol 39 mg/dl 04/13/18 04:05 Cholesterol/HDL Ratio 5 04/13/18 04:05 Lipase 101 U/L (73-393) 04/12/18 22:59 Procalcitonin 0.14 ng/ml (0-0.5) 04/16/18 04:38 TSH 1.170 uIu/ml (0.300-4.500) 04/12/18 22:59 Random Cortisol 19.04 mcg/dl 04/16/18 04:38 Specimen Hemolysis 04/12/18 22:59 Urine Color Yellow 04/15/18 00:00 Urine Appearance Clear (Clear) 04/15/18 00:00 Urine pH 5.0 (4.5-7.5) 04/15/18 00:00 Ur Specific [place] 1.029 (1.000-1.030) 04/15/18 00:00 Urine Protein Negative (Negative) 04/15/18 00:00 Urine Glucose (UA) Negative (Negative) 04/15/18 00:00 Urine Ketones 1+ (Negative) H 04/15/18 00:00 Urine Blood Negative (Negative) 04/15/18 00:00 Urine Nitrite Negative (Negative) 04/15/18 00:00 Urine Bilirubin Negative (Negative) 04/15/18 00:00 Urine Urobilinogen Negative (Negative) 04/15/18 00:00 Ur Leukocyte Esterase Negative (Negative) 04/15/18 00:00 Nasal Screen MRSA (PCR) Negative (Negative) 04/13/18 Unknown Urine Opiates Screen Neg (Neg) 04/16/18 13:00 Ur Methadone, Qual Neg (Neg) 04/16/18 13:00 Urine Barbiturates Neg (Neg) 04/16/18 13:00 Ur Phencyclidine (PCP) Neg (Neg) 04/16/18 13:00 U Amphetamin/Meth Scrn Neg (Neg) 04/16/18 13:00 MDMA (Ecstasy) Screen Neg (Neg) 04/16/18 13:00 U Benzodiazepines Scrn Neg (Neg) 04/16/18 13:00 Ur Cocaine Metabolite Neg (Neg) 04/16/18 13:00 U Marijuana (THC) Screen Neg (Neg) 04/16/18 13:00 Influenza Type A (PCR) Neg for Influ A (Neg) 04/15/18 09:20 Influenza Type B (PCR) Neg for Influ B (Neg) 04/15/18 09:20 Blood Type O Positive 04/12/18 22:59 Antibody Screen NEGATIVE 04/12/18 22:59 Resident Activity Tracking Resident Involvement: Resident Care Provided Care Provided: Adult Hospital Medicine
[2018-04-17] MEDS ORDERED: POTASSIUM CHLORIDE 20 MEQ TABCR PO ONE (15:00)
--- NOTE | 2018-04-17 18:27 | Cardiology Progress Note ---
Date of Service April 17, 2018 Assessment & Plan (1) ST elevation [place] (STEMI): 2. Respiratory failure requiring bipap - question PNA vs pulmonary edema 3. Hypotension/shock 4. DAR 5. Transaminitis 6. Ischemic cardiomyopathy, EF 35-40% Patient improving today. Breathing improved on nasal cannula, blood pressure stable. Well-perfused on exam with mild residual congestion. Renal function stable. Agree with continued diuresis today. Continue dual antiplatelet therapy with aspirin, ticagrelor Continue high intensity statin Restarted on beta-destiny last night. We will plan to resume TIMMY inhibitor tomorrow as BP allows. From a cardiac standpoint okay for transfer to telemetry today. Subjective BP stable overnight. Transitioned off BiPAP to nasal cannula. No recurrent chest pain. Breathing improving. No other new concerns today. Physical Exam 2 Vital Signs (Past 24 Hours): Last Vital Signs Temp 36.8 C 04/17/18 08:00 Pulse 65 04/17/18 14:46 Resp 32 H 04/17/18 14:00 BP 96/70 L 04/17/18 14:00 Pulse Ox 95 04/17/18 13:54 Physical Exam: General: Comfortable, no acute distress Eyes: Sclerae anicteric, extraocular movements intact HENT: Oropharynx clear mucous membranes moist Neck: Normal carotid upstrokes, no bruits. No JVD. Lungs: Decreased breath sounds at bases bilaterally Cardiac: Regular rate and rhythm, no murmurs, rubs or gallops. Vascular: Right radial artery access site with no ecchymosis, hematoma. Distal pulse and sensation intact. Abdomen: Soft, nontender, nondistended, positive bowel sounds. Extremities: Well perfused, no peripheral edema Skin: No rashes or lesions. Neuro: Nonfocal Psych: Alert orient x3, normal affect and mood
[2018-04-18] MEDS ORDERED: CALCIUM CARBONATE 500 MG CHEWABLE TAB PO PRN (00:50)
[2018-04-18 04:33] VITALS: TEMP 98.1
[2018-04-18 07:05] VITALS: O2SAT 94
[2018-04-18 07:08] LABS: Hemoglobin 12.9 g/dL (14.0-18.0); Mean Corpuscular Hgb Conc 34.9 g/dL (32-36); Mean Corpuscular Volume 90.2 fL (80-100); Platelet Count 357 K/uL (130-400); RDW Coefficient of Variation 12.9 % (11.5-14.5); RDW Standard Deviation 42.5 fL (36.4-46.3); White Blood Count 9.09 K/uL (4.8-10.8)
[2018-04-18 08:06] LABS: BUN Creatinine Ratio 14.2 (10-20); Calcium 8.3 mg/dl (8.5-10.1); Creatinine Clr Calc Pharmacy 76.6 ml/min; Est GFR (African American) 91.9; Est GFR (Non-African American) 79.3; Potassium 3.6 mmol/L (3.5-5.1)
[2018-04-18] MEDS: ATORVASTATIN 40 MG TAB PO SCH (08:29)
[2018-04-18] MEDS: TICAGRELOR 90 MG TAB PO SCH (08:29)
[2018-04-18] MEDS: METOPROLOL TARTRATE 25 MG TAB PO SCH (08:30)
[2018-04-18] MEDS: ASPIRIN 81 MG ECTAB PO SCH (08:30)
[2018-04-18] MEDS: AMOXICILLIN/CLAVULANATE 875 MG TAB PO SCH (08:30)
[2018-04-18] MEDS: LISINOPRIL 5 MG TAB PO SCH (08:30)
[2018-04-18] MEDS: HEPARIN SOD 5,000 UNIT/0.5 ML VIAL SQ SCH (08:47)
--- NOTE | 2018-04-18 09:45 | Cardiology Progress Note ---
Date of Service April 18, 2018 Assessment & Plan (1) ST elevation [place] (STEMI): 2. Respiratory failure requiring bipap - question PNA vs pulmonary edema 3. Hypotension/shock 4. DAR 5. Transaminitis 6. Ischemic cardiomyopathy, EF 35-40% Patient much improved today. Up walking halls without symptoms. Blood pressure stable. Lab stable From a cardiac standpoint OK for discharge today. -- Home on DAPT with ASA/ticagrelor -- Transition metoprolol to toprol XL 50mg daily -- Will plan to add TIMMY as an outpatient -- Continue high-intensity statin -- Follow-up with me in 2 weeks. Subjective Patient looks well today. Up walking halls. No recurrent chest pain. Breathing improving. No other new concerns today. Physical Exam 2 Vital Signs (Past 24 Hours): Last Vital Signs Temp 36.7 C 04/18/18 07:04 Pulse 64 04/18/18 07:04 Resp 20 04/18/18 07:04 BP 99/64 L 04/18/18 07:04 Pulse Ox 94 04/18/18 07:04 Constitutional: WD/WN, vitals as above Eyes: PERRL, conjunctivae normal, anicteric sclerae Respiratory: normal respiratory effort, lungs clear to auscultation Cardiovascular: RRR, no murmur, no edema Gastrointestinal (Abdomen): normal bowel sounds, soft, nontender, no hepatosplenomegaly Musculoskeletal: no cyanosis or clubbing, extremities motor strength 5/5 Skin: no rashes, warm and dry Psychiatric: A+Ox3, euthymic affect
[2018-04-18 10:08] VITALS: BP 112/81; PULSE 70
--- NOTE | 2018-04-18 15:43 | Discharge Summary ---
Date of Service April 18, 2018 Admission HPI Per Admitting Provider Neal is a 47 year old male with no significant past medical history that presented to [facility] on 04/12/18 and was found to have an acute anterior STEMI status post PTCA with GUILLAUME x2 to the LAD. The patient was lifting weights at 730pm yesterday evening when he started experiencing 10/10 central chest pressure that he describes as a pressure like pain. The patient had associated diaphoresis and fatigue. He then arrived at the ED at 1030pm. He was noted to have a 3mm ST elevation in the anterior leads on EKG. He was taken to the agricultural labor camp manager by Dr. Kaur. He was found to have a fully occluded proximal LAD. He had 2 drug eluting stents placed and was transferred to the ICU for further monitoring. Neal is currently resting comfortable in the ICU. He notes that his chest pain is much improved but is still a 1-2/10 in severity. He also feels very fatigued and mildly nauseated. 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 ST elevation OK Discharge Exam General; no acute distress, normocephalic/atraumatic HEENT; supple, nontender, no LAD of the cervical or supraclavicular nodes Cardio; regular rate and rhythm, normal S1-S2, no murmurs/rubs/gallops Pulmonary; no respiratory distress, clear to auscultation bilaterally, no wheezing/rales/rhonchi Abdomen; normal bowel sounds, soft nontender, nondistended MSK; no cyanosis or clubbing, no calf tenderness Psych/neuro; cranial nerves grossly intact, answering questions appropriately, alert and oriented x3, normal mood/affect Discharge Data Allergies Allergy/AdvReac Type Severity Reaction Status Date / Time No Known Allergies Allergy Verified 04/12/18 23:37 Consultations 04/12/18 23:07 ED Decision to Admit Stat 04/13/18 01:13 Consult Cardiac Rehabilitation Routine 04/14/18 14:59 Consult ELTON brim edge trimmer Routine Procedures Performed Operation Date: 04/12/18 23:15 Actual Procedures p Aspiration/PCI w/GUILLAUME for Stemi - Bernabe Kaur MD s Cath, Left with Cors and Vent - Bernabe Kaur MD s Cineradiography w/Routine Exam - Bernabe Kaur MD s POBA SGL Vessel - Bernabe Kaur MD s IVUS Coronary Single Vessel - Bernabe Kaur MD Operation Date: 04/16/18 10:30 Actual Procedures p Right Heart Cath Only(Right) - Bernabe Kaur MD Ordered Studies 04/12/18 23:13 CL Cath Imgs for PACS use only Stat 04/13/18 07:44 CL IVUS Coronary Single Vessel Routine 04/15/18 05:43 US point of care ultrasound Urgent 04/16/18 10:18 CL Cath Imgs [place] [address] Cardiac Catheterization Signed Patient: Tay ROMEO Date: 04/13/18 MR#: [id number] Phy: Shima Reyes M.D. Acct ID:[id number] Phy: Carlene Chau MD Date: 1970Fam Phy: Age: 47Location: 1E Sex: M Room/Bed: [facility] cc: Pineda Kaur MD~ *NOTICE TO RECEIVING [employer]/AGENCY This information is strictly Confidential and protected under [place] law. [place] law prohibits you from making any further disclosure of this information unless further disclosure is expressly permitted by the written consent of the person to whom it pertains or is authorized by law. A general authorization for the release of medical or other information is not sufficient for this purpose. Hospital accepts no responsibility if the information is made available to any other person, INCLUDING THE PATIENT. Cardiac Cath Procedure Full Procedure Date April 12, 2018 Pre-Procedure Diagnosis Pre-Procedure Diagnosis: STEMI AUC Score AUC Score: 9 Post-Procedure Diagnosis Post-Procedure Diagnosis: Severe CAD, Successful PCI and Elevated Intracardiac Pressures Procedure(s) Performed Procedure(s) Performed: Coronary Angiography, Left Heart Cath, PTCA, Drug Eluting Stent and IVUS Metal Wire Technician Pineda Kaur MD Cad Intern(s) Mookie Estimated Blood Loss Estimated Blood Loss: 20 Medication(s) Medication(s): Adenosine, Fentanyl, Heparin, Lidocaine 1%, Nicardipine, Nitroglycerin and Versed Medication(s): Ticagrelor Summary of Findings Indication: STEMI/Heart Alert Access: 6Fr right radial artery Catheters: EBU 3.5 guide Findings: LM - Luminal irregularities LAD - 100% acute proximal occlusion Circumflex - Moderate caliber vessel with 40-50% mid segment into proximal OM2 disease Ramus - Moderate caliber vessel without significant disease RCA - Large caliber, dominant vessel. Mid segment luminal irregularities. R- PDA large caliber without significant disease. LVEDP - 25 -- PCI -- Antithrombotic therapy: Heparin, Ticagrelor Procedure: LM cannulated with EBU 3.5 guide Emergency Department 50 wire passed across lesion into distal vessel Proximal LAD lesion predilated with 2.0 compliant balloon Dilated lesion stented with 3.0 x 26 Lino GUILLAUME Due to heavy thrombus burden and slow distal flow started on integrilin IVUS used to asses extent of disease, calcification and for vessel sizing. Emergency Department 50 wire placed into moderate caliber 2nd diagonal Stent post-dilated with 4.0 noncompliant balloon to high atmospheres. Noted to have some haziness at distal end of stent. IVUS showed moderate to severe plaque distal to stent. 2nd GUILLAUME placed to mid LAD (2.75 x 12 [place]) and overlapped distal end of initial stent Ostium of 2nd diagonal/stent struts dilated with 1.5 and 2.0 balloons. IC vasodilators administered for spasm Post procedure FLOR 3 flow, stent well expanded with minimal residual stenosis and no apparent cardiac complications. Arterial Closure: TR Band Summary: 1. Anterior STEMI/Occluded LAD 2. Moderate single vessel non-culprit coronary artery disease - 40-50% mid circumflex 3. Elevated intracardiac filling pressure 4. Successful PCI of proximal to mid LAD with 2 overlapping drug-eluting stents (3.0 x 26, 2.75 x 12; post-dilated with 4.0 NC). - POBA of ostium of 2nd diagonal with 2.0 balloon. Recommendations: Admit to ICU for continued monitoring Continue integrilin for 8 hours. Loaded with Ticagrelor 180 mg in agricultural labor camp manager. Continue dual-antiplatelet therapy for at least 1 year. Trend troponins until peak, Check Echo Uptitrate beta-destiny/TIMMY as BP allows High-dose statin Gentle diuresis as needed Consult cardiac Rehab Hemodynamics Rest Ao:: 93/48/71 Final Ao: 92/60/77 LV: 96/25 Recommendations Recommendations: PCI without planned CABG Specimens Specimens: None Radiation Exposure (mGy) 2819 Contrast (mls) 150 Fluids (cc crystalloids) Fluids (cc crystalloids): 800 Drains Drains: none Anesthesia moderate Procedural Complication(s) None Disposition ICU ACC Data: Tree Planter Cardiac Status Clinical evaluation leading to the procedure CAD Presenation: STEMI Anginal Classification: CCS IV Heart Failure: No Cardiogenic Shock within 24 Hours: No Cardiac Arrest within 24 Hours: No Imaging Studies Past 6 Months: No Stress Studies Past 6 Months: No Diagnostic Physicians Name: Pineda Kaur MD Status: Emergency Closure Device Percutaneous Entry Location: Radial Closure Device: Radial Band Recommendations: PCI without planned CABG PCI Indication: Immediate PCI for STEMI First Noted: First EKG Lesion Segment Name: proximal LAD Culprit Artery: Yes Stenosis Prior to Rx (%): 100 Chronic Total Occlusion: No IVUS: Yes FFR: No Pre-Procedure FLOR Flow: 0 Previously Treated Lesion: No Lesion Complexity: High/C Lesion Length (mm): 25 Thrombus Present: Yes Bifurcation Lesion: Yes Guidewire Across Lesion: Stenosis Post-Procedure (%): 0 Post-Procedure FLOR Flow : 3 Devices(s) Deployed: Yes Yes Intraprocedure Events Significant Disection: No Perforation: No Signed By:<Electronically signed by Bernabe Kaur MD>04/16/18 0813 Created: 04/12/18 2318 The status of this report is Signed. Draft = Not yet reviewed or approved by Medical Physician. Signed = Reviewed and approved by Medical Physician. Hospital Course (1) Hypotension: (2) ST elevation OK (STEMI): 47-year-old male with no significant past medical history came to ED with chest pain and was noted to have STEMI. Left anterior descending OK. Persistent hypotension status post stent placement -underwent stent placementx2 in the LAD. Was started on aspirin, Lipitor, Brilinta, metoprolol - to be continued on discharge. Patient will start lisinopril 3 days after dischargewas slowly introducing antihypertensives, as the patient was having hypotension in the days following the procedure. Cardiogenic shock with pulmonary congestion - in setting of acute OK - Underwent Right heart cath - was reassuring, no evidence of low output state Was given diuretics. He diuresed well with improvement in symptoms. DAR Sec to cardiogenic shock. Resolved Transaminitis Sec to cardiogenic shock - Resolved Will follow up with precision assembler, Dr. Kaur in 2 weeks. (3) CAD (coronary artery disease): (4) S/P drug eluting coronary stent placement: (5) Pneumonia: Total Time Total Time Spent Total Time Spent (In Minutes): Greater than 30 minutes Total Time Includes: Examination of the Patient, Discharge Planning, Medication Reconciliation and Communication With Other Providers Discharge Plan Discharge Items Patient Disposition: Home - Self-Care Reason For Visit: AMI Discharge Diagnosis: OK Condition: Good Discharge Goals: Therapeutic intervention Activity: Per 'Additional Instructions' section Non-emergency contact: Primary Care Provider and Metal Wire Technician Call non-emergency contact if: you have any medication questions Follow-up/Referrals: Carlene Chau MD [Primary Care Provider] - 04/23/18 10:00 am (Please, follow up with Dr. Chau on MondayApril 23 at 10:00 am. *If you need to change this appointment, call the office at [phone].) Bernabe Kaur MD [Physician] - 05/03/18 2:30 pm (Please, follow up with Dr. Johnathan Kaur on May 03 at 2:30 pm. ) Diet: Heart Healthy Add Provider Instructions: Mr. Romeo you are being discharged home today with instructions to follow up with Dr. Kaur in 2 weeks. In the meantime, do not hesitate to contact Dr. Kaur or your PCP if you develop concerning symptoms. These symptoms would include chest pain, SOB, acute swelling of you arms and legs. We have been closely watching your blood pressure closely, as at times it was low following the procedure. There is no need to regularly take your blood pressure. The only time you need to take your blood pressure, is if you begin to feel symptomatic--dizziness with standing, excessive fatigue. If the top number is below 90, Dr. Kaur recommends holding your metoprolol. You will taking the following medical regimen listed below. Hold off on starting Lisinopril for a couple of days per Dr. Kaur. Aspirin/Brillinta--antiplatlet medication to prevent blockage at the stent site Metoprolol/lisinopril--medications to control blood pressure and to prevent worsening heart disease Amoxicillin--finish a three day course for treatment of suspected pneumonia Prescriptions: New atorvastatin 80 mg tablet 80 mg PO DAILY 30 Days Qty: 30 RF: 6 metoprolol succinate 50 mg tablet extended release 24 hr 50 mg PO DAILY 30 Days Qty: 30 RF: 6 lisinopril 5 mg tablet 5 mg PO DAILY 30 Days Qty: 30 RF: 6 amoxicillin-pot clavulanate [Augmentin] 875-125 mg tablet 1 tab PO BID 3 Days Qty: 6 RF: 0 ticagrelor [Brilinta] 90 mg tablet 90 mg PO BID 30 Days Qty: 60 RF: 6 aspirin [Ecotrin Low Strength] 81 mg tablet,delayed release (DR/EC) 81 mg PO DAILY 30 Days Qty: 30 RF: 6 Stand-Alone Forms: [facility] Discharge Orders: Discharge Order (Routine); Ordered 04/18/18 Ordered By: Lorenzo Brown Admission Data Admit Date/Time: 04/13/18 01:14 Attending Provider: Shima Reyes Admit Provider: Bernabe Kaur Primary Care Provider: Carlene Chau Other Providers: Mando Flanagan ; Jaxson Grullon Service: Telemetry Other Interventions: Discharge Summary Assessment (RN) Last Done: 04/18/18 09:41 Pending Studies at Discharge: No DC Date/Time DO NOT enter until pt leaves facility: 04/18/18 12:02 Supervising Physician Co-Signing Physician Notes Resident Physician Supervision Note: I independently interviewed and examined the patient and verified the valencia history and physical, reviewed labs and image studies, discussed the case with the resident Dr. Brown and agree with the findings and care plan. Time spent in discharge 35 min Resident Activity Tracking Resident Involvement: Resident Care Provided Care Provided: Adult Hospital Medicine
--- NOTE | 2018-04-20 15:13 | Coding Query ---
PRESENT ON ADMISSION QUERY To promote full compliance with coding requirements relating to pateint care, physician participation is requested in all cases of mechanical designer uncertainty. Please assist us with the question(s) below: Please place an X within the parenthesis (x). The following diagnosis(es) listed in this patient's medical record require physician assistance to determine if they were present on admission (POA) or not. Please advise for each diagnosis whether it was present on admission, not present on admission, or if it was clinically undetermined. 1. PNEUMONIA ( ) Present On Admission ( ) Not Present On Admission ( ) Clinically Undetermined Thank you Chencho Neville SOCIAL SCIENCE TEACHER CCS *Definition of the present on admission (POA)-Present on admission is defined as present at the time the order for inpatient admission occurs. Conditions that develop during an outpatient encounter prior to a written order for inpatient admission (including emergency department, observation, or outpatient surgery) are considered present on admission. MARIYAD
--- NOTE | 2018-04-20 15:17 | Coding Query ---
SEPSIS To promote full compliance with coding requirements relating to patient care, physician participation is requested in all cases of icd 9 coder uncertainty. Please assist us with the question(s) below: In responding to this query, please exercise your independent professional judgement. The fact that a question is asked does not imply that any particular answer is desired or expected. We appreciate your clarification on this issue. Throughout the medical record, you have clearly documented a localized infection and your patient has clinical evidence of a generalized sepsis or severe sepsis. The term urosepsis is a nonspecific entity and is coded as an UTI. If the patient has sepsis, severe sepsis, from an urinary source or some other source, please clarify in your response below. The medical record reflects the following clinical findings: Septic shock with pneumonia . Admission for STEMI - PCI / drug eluding stent. Please check below the if applicable. Thank you. SERG Griffiths CCS ____ ( )Bacteremia (Nonspecific laboratory finding of bacteria in the blood) Specify Organism ( ) Present on Admission ( ) Not present on admission ( ) Unable to clinically determine ( ) Septicemia (Systemic disease associated with the presence of pathogenic microorganisms in the blood): Specify Organism ( ) Present on Admission( ) Not present on admission ( ) Unable to clinically determine ( ) Sepsis Specify Organism Specify Associated Condition/Diagnosis ( ) Present on Admission ( ) Not present on admission ( ) Unable to clinically determine ( ) Severe Sepsis (Sepsis associated with acute organ dysfunction) Specify Organism Specify Associated Condition/Diagnosis ( ) Present on Admission ( ) Not present on admission ( ) Unable to clinically determine ( ) Septic Shock (Severe sepsis with acute circulatory failure, unexplained by other causes) ( ) Present on Admission ( ) Not present on admission ( ) Unable to clinically determine () Other, patient has: MTDD
--- NOTE | 2018-05-09 05:36 | Coding Query ---
SEPSIS To promote full compliance with coding requirements relating to patient care, physician participation is requested in all cases of outpatient coder uncertainty. Please assist us with the question(s) below: In responding to this query, please exercise your independent professional judgement. The fact that a question is asked does not imply that any particular answer is desired or expected. We appreciate your clarification on this issue. Throughout the medical record, you have clearly documented a localized infection and your patient has clinical evidence of a generalized sepsis or severe sepsis. The term urosepsis is a nonspecific entity and is coded as an UTI. If the patient has sepsis, severe sepsis, from an urinary source or some other source, please clarify in your response below. The medical record reflects the following clinical findings: Septic shock, pneumonia. Pt admitted for STEMI/PCI. Please check below if applicable. Thank you . SERG Griffiths CCS ____ ( )Bacteremia (Nonspecific laboratory finding of bacteria in the blood) Specify Organism ( ) Present on Admission ( ) Not present on admission ( ) Unable to clinically determine ( ) Septicemia (Systemic disease associated with the presence of pathogenic microorganisms in the blood): Specify Organism ( ) Present on Admission ( ) Not present on admission ( ) Unable to clinically determine ( ) Sepsis Specify Organism Specify Associated Condition/Diagnosis ( ) Present on Admission ( ) Not present on admission ( ) Unable to clinically determine ( ) Severe Sepsis (Sepsis associated with acute organ dysfunction) Specify Organism Specify Associated Condition/Diagnosis ( ) Present on Admission ( ) Not present on admission ( ) Unable to clinically determine ( ) Septic Shock (Severe sepsis with acute circulatory failure, unexplained by other causes) ( ) Present on Admission ( ) Not present on admission ( ) Unable to clinically determine (x ) Other, patient has: patient did not have pneumonia or sepsis. He had CHF and acute AL causing wbc elevated, respiratory distress. MTDD
--- NOTE | 2018-05-09 05:39 | Coding Query ---
PRESENT ON ADMISSION QUERY To promote full compliance with coding requirements relating to pateint care, physician participation is requested in all cases of pre coder uncertainty. Please assist us with the question(s) below: Please place an X within the parenthesis (x). The following diagnosis(es) listed in this patient's medical record require physician assistance to determine if they were present on admission (POA) or not. Please advise for each diagnosis whether it was present on admission, not present on admission, or if it was clinically undetermined. Thank you ! Chencho Neville, [facility] CCS PNEUMONIA: ( ) Present On Admission (x ) Not Present On Admission ( ) Clinically Undetermined Patient did not have pneumonia. He had CHF *Definition of the present on admission (POA)-Present on admission is defined as present at the time the order for inpatient admission occurs. Conditions that develop during an outpatient encounter prior to a written order for inpatient admission (including emergency department, observation, or outpatient surgery) are considered present on admission. MARIYAD
== END 2018-04-18 12:02 | disposition home or self-care (01) | DRG 246 ==
LOC: ED 22:45 → 1E 23:33 → SUATTDRO 04-13 01:14 → 2S 04-14 16:42 → 1E 04-15 05:26 → 2S 04-17 14:43
PROC: CLB.CRH (2018-04-16 10:30)